=== PATIENT | male | born 1945 | race Caucasian/White ===

== ENCOUNTER 2020-04-15 07:27 | Outpatient (CLI) | payer MEDICARE, SELFPAY ==
--- NOTE | 2020-04-15 07:55 | ECHO_ITS ---
Patient Info Name: Anthony Mercado Age: 74 years : 1945 Gender: Male Ht: 71 in Wt: 160 lbs BSA: 1.91 m2 HR: 61 bpm BP: 127 / 73 mmHg Technical Quality: Good Exam Date: 04/15/2020 7:56 AM Exam Location: [facility] Patient Status: Outpatient Admit Date: 04/15/2020 Staff Ordering Physician: Matias Polk DO Headlight Adjuster: Patricia Zhang RDCS Attending Provider: Matias Polk DO Referring Physician: Jam VENEGAS; Exam Type: CA echo doppler color flow Study Info Indications I51.9 - Heart disease, unspecified Complete two-dimensional, color flow and Doppler transthoracic echocardiogram is performed. Summary 1. Complete two-dimensional, color flow and Doppler transthoracic echocardiogram is performed. 2. Left ventricular chamber dimension is severely enlarged. 3. [place] is akinetic. Mid-apical anteroseptum/septum/lateral hector are severely hypokinetic. 4. Left ventricular systolic function is severely reduced, estimated at 30-35%. 5. The left ventricular diastolic function is grade II diastolic dysfunction. 6. E/e' 18 is elevated. 7. Global longitudinal strain is abnormal at -5.8%. 8. Left atrial chamber dimension is mildly enlarged. 9. There is trace aortic valve regurgitation. 10. There is trace mitral valve regurgitation. 11. There is trace tricuspid valve regurgitation. 12. No pulmonary hypertension, estimated pulmonary arterial systolic pressure is 33 mmHg. 13. There is trace pulmonic regurgitation. 14. Normal inferior vena cava with <50% collapse upon inspiration consistent with elevated right atrial pressure, 10 mmHg. Left Ventricle E/e' 18 is elevated. [place] is akinetic. Mid-apical anteroseptum/septum/lateral hector are severely hypokinetic. Global longitudinal strain is abnormal at -5.8%. Left ventricular chamber dimension is severely enlarged. Left ventricular systolic function is severely reduced, estimated at 30-35%. The left ventricular diastolic function is grade II diastolic dysfunction. Right Ventricle Right ventricular chamber dimension is normal. Right ventricular systolic function is normal. Left Atria Left atrial chamber dimension is mildly enlarged. Right Atria Right atrial chamber dimension is normal. Aortic Valve The aortic valve is trileaflet. There is no aortic valve stenosis. There is trace aortic valve regurgitation. Pulmonic Valve There is trace pulmonic regurgitation. Mitral Valve There is no mitral valve stenosis. There is trace mitral valve regurgitation. Tricuspid Valve There is trace tricuspid valve regurgitation. No pulmonary hypertension, estimated pulmonary arterial systolic pressure is 33 mmHg. Pericardium/Pleural There is no pericardial effusion. Inferior Vena Cava Normal inferior vena cava with <50% collapse upon inspiration consistent with elevated right atrial pressure, 10 mmHg. Aorta The aortic root size at the sinus of Valsalva is normal. Left Ventricular Outflow Tract Name Value Normal LVOT 2D LVOT Diameter 2.0 cm LVOT Doppler LVOT Peak Gradient 4 mmHg LVOT Mean Gradient
== END 2020-04-15 07:28 | disposition home or self-care (01) ==
PROVIDERS: PCP Family Medicine; Visit Provider Internal Medicine Cardiovascular Disease
DX: I51.9 Heart disease, unspecified (principal)
CPT/HCPCS: 93306

== ENCOUNTER 2020-07-18 12:24 | Outpatient (CLI) | payer MEDICARE, SELFPAY ==
--- NOTE | 2020-07-18 12:50 | ECHO_ITS ---
Patient Info Name: Anthony Mercado Age: 75 years : 1945 Gender: Male Ht: 71 in Wt: 160 lbs BSA: 1.91 m2 BP: 108 / 59 mmHg Heart Rhythm: Sinus Rhythm Technical Quality: Good Exam Date: 07/18/2020 12:59 PM Exam Location: [facility] Patient Status: Outpatient Admit Date: 07/18/2020 Staff Ordering Physician: Matias Polk DO Residential Counselor: Cam Muniz RDCS Attending Provider: Matias Polk DO Referring Physician: Jam VENEGAS; Exam Type: CA echo doppler color flow Study Info Indications I51.9 - Heart disease, unspecified Complete two-dimensional, color flow and Doppler transthoracic echocardiogram is performed. Strain analysis performed. History/Risk Factors Congestive heart failure. Summary 1. Complete two-dimensional, color flow and Doppler transthoracic echocardiogram is performed. 2. Left ventricular chamber dimension is severely enlarged. 3. Mid to apical anteroseptum and septum are akinetic. Entire apex is akinetic. 4. Left ventricular systolic function is severely reduced, estimated at 20-25%. 5. The left ventricular diastolic function is abnormal. 6. E/e' 25 is significantly elevated. 7. Global longitudinal strain is abnormal at -8.0%. 8. Left atrial chamber dimension is mildly enlarged. 9. There is mild mitral valve regurgitation. 10. There is mild tricuspid valve regurgitation. 11. There is trace pulmonic regurgitation. Left Ventricle E/e' 25 is significantly elevated. Mid to apical anteroseptum and septum are akinetic. Entire apex is akinetic. Global longitudinal strain is abnormal at -8.0%. Left ventricular chamber dimension is severely enlarged. Left ventricular systolic function is severely reduced, estimated at 20-25%. The left ventricular diastolic function is abnormal. Right Ventricle Right ventricular chamber dimension is normal. Right ventricular systolic function is normal. Left Atria Left atrial chamber dimension is mildly enlarged. Right Atria Right atrial chamber dimension is normal. Aortic Valve The aortic valve is trileaflet. There is no aortic valve stenosis. There is no aortic valve regurgitation. Pulmonic Valve There is trace pulmonic regurgitation. Mitral Valve There is no mitral valve stenosis. There is mild mitral valve regurgitation. Tricuspid Valve There is mild tricuspid valve regurgitation. RVSP is not calculated due to an inadequate TR jet. Pericardium/Pleural There is no pericardial effusion. Inferior Vena Cava Normal inferior vena cava with >50% collapse upon inspiration consistent with normal right atrial pressure, 5 mmHg. Aorta The aortic root size at the sinus of Valsalva is normal. Left Ventricular Outflow Tract Name Value Normal LVOT 2D LVOT Diameter 2.0 cm LVOT Doppler LVOT Peak Gradient 3 mmHg LVOT Mean Gradient 2 mmHg LVOT VTI 19 cm LVOT VTI/AV VTI Ratio 0.8 LVOT Stroke Volume 58 ml LVOT CO 3.0 l/min
== END 2020-07-18 12:25 | disposition home or self-care (01) ==
PROVIDERS: PCP Family Medicine; Visit Provider Internal Medicine Cardiovascular Disease
DX: I51.9 Heart disease, unspecified (principal); I34.0 Nonrheumatic mitral (valve) insufficiency; I36.1 Nonrheumatic tricuspid (valve) insufficiency
CPT/HCPCS: 93306

== ENCOUNTER 2020-08-02 01:54 | Outpatient (CLI) | payer MEDICARE, SELFPAY ==
[2020-08-02 18:12] LABS: SARS-CoV-2 RNA PCR Negative
== END 2020-08-02 01:55 | disposition home or self-care (01) ==
LOC: ANHCOVIDDT 01:54
PROVIDERS: Family Provider Internal Medicine; PCP Family Medicine; Visit Provider Specialist
DX: Z01.812 Encounter for preprocedural laboratory examination (principal); Z20.822 Contact with and (suspected) exposure to COVID-19
CPT/HCPCS: C9803; U0003; U0005

== ENCOUNTER → 2020-08-13 00:46 | Outpatient (CLI) | payer MEDICARE, SELFPAY ==
[2020-08-13 20:38] LABS: SARS-CoV-2 RNA PCR Negative
== END ==
PROVIDERS: PCP Family Medicine; Visit Provider Specialist
DX: Z01.812 Encounter for preprocedural laboratory examination (principal); Z20.822 Contact with and (suspected) exposure to COVID-19
CPT/HCPCS: C9803; U0003; U0005

== ENCOUNTER 2020-08-17 01:18 | Day surgery (SDC) | payer MEDICARE, SELFPAY ==
[2020-08-16 13:30] VITALS: BMI 22.3
[2020-08-17] VITALS (14 sets, daily range): BP systolic 112–167; BP diastolic 60–106; PULSE 59–84; RESP 12–16; TEMP 36.5–36.8; O2SAT 98–100; BMI 21.7
[2020-08-17 07:33] LABS: Basophils Absolute Auto 0.1 K/mm3 (0.0-0.1); Basophils Percent Auto 1.1 % (0.2-1.2); Eosinophils Absolute Auto 0.2 K/mm3 (0-0.3); Eosinophils Percent Auto 2.6 % (0-4.4); Hematocrit 40.5 % (42.0-52.0); Hemoglobin 13.5 g/dL (14.0-18.0); Immature Granulocyte Absolute 0.02 K/mm3 (0.00-0.031); Immature Granulocyte Percent A 0.2 % (0-0.5); Lymphocytes Absolute Auto 2.25 K/mm3 (0.9-3.2); Lymphocytes Percent Auto 28.1 % (18.3-44.2); Mean Corpuscular HGB Conc 33.3 g/dl (32-36); Mean Corpuscular Hemoglobin 32.3 pg (26-34); Mean Corpuscular Volume 96.9 fl (80-100); Mean Platelet Volume 10.4 fl (7.4-10.4); Monocytes Absolute Auto 0.8 K/mm3 (0.1-0.6); Monocytes Percent Auto 10.5 % (2.6-8.5); Neutrophils Absolute Auto 4.6 K/mm3 (1.3-6.7); Neutrophils Percent Auto 57.5 % (45.5-73.1); Platelet Count Result 271 k/mm3 (150-375); Red Blood Count 4.18 M/mm3 (4.6-6.20); Red Cell Distribution Width 13.2 % (11.5-14.5)
[2020-08-17 07:45] LABS: Anion Gap 6 mmol/L (8-16); Blood Urea Nitrogen 14 mg/dL (9-20); Calcium 9.7 mg/dL (8.4-10.2); Carbon Dioxide 30 mmol/L (22-30); Chloride 103 mmol/L (98-107); Estimated CRCL calculation 89 ml/min; Estimated Glomerular Filt Rate > 60; Glucose 147 mg/dL (75-110); Prothrombin Time 13.4 Seconds (11.1-14.7); Sodium 139 mmol/L (137-145)
--- NOTE | 2020-08-17 09:50 | WPDMODSED ---
Moderate Sedation Note-Pt Data Patient Data Diagnosis: left ventricular systolic dysfunction with evidence of coronary disease on stress testing Present Complaint: no complaints Procedure to be performed/Plan: left heart catheterization Allergies Allergy/AdvReac Type Severity Reaction Status Date / Time No Known Allergies Allergy Unverified 07/22/20 13:48 Home Medications Medication Instructions Recorded Confirmed Type pravastatin 10 mg tablet 10 mg PO DAILY #30 tablet 01/29/20 08/17/20 Rx carvedilol 3.125 mg tablet 3.125 mg PO Q12H #60 tablet 04/15/20 08/17/20 Rx lisinopril 2.5 mg tablet 2.5 mg PO DAILY #30 tablet 04/15/20 08/17/20 Rx aspirin 81 mg tablet,delayed 81 mg PO DAILY 04/22/20 08/17/20 History release glyburide 2.5 mg tablet 2.5 mg PO BID #180 tablet 06/08/20 08/17/20 Rx canagliflozin-metformin [Invokamet 2 tablet PO BID 08/16/20 08/17/20 History XR] Current Medications: Active Medications Sodium Chloride (Normal Saline Iv) 500 mls @ 100 mls/hr IV CONT .Q5H KAYLA Sedation/Anesthesia: No previous sedation/anesthesia problems (including family history). [facility] Past Medical History Medical History (Updated 03/29/20 @ 14:15 by Matias Polk DO) Depression Diabetes Elevated lipids Family History Family History Father Family history of congestive heart failure, Onset Age: 76 Family history of rheumatic fever Other Depression Diabetes mellitus Family history of seizure disorder Family history of thyroid disease Hypertension Social History Social History Smoking status: Never smoker Second hand tobacco smoke exposure: No Alcohol intake: never Living arrangements: alone Gender identity (if verbalized by the patient): Male Spiritual care concerns: No Mod Sed Physical Exam Physical Exam Pre Procedural Exam: Normal: Appearance, Neck, Throat, Airway, Lungs, Heart Size, Heart Rate, Heart Rhythm, Neuro Exam and Extremities Hours since solid foods: 12 Hours since liquid intake: 12 Internal Medicine - PN: Obj Da Vital Signs Vital Signs: Vital Signs - 24 hr 08/17/20 07:30 Temperature 36.8 C Pulse Rate 63 Respiratory Rate 13 Blood Pressure 163/75 H Pulse Oximetry 99 Meds/Results Medications: Active Medications Generic Name Dose Route Start Last Admin Trade Name Thu PRN Reason Stop Dose Admin Sodium Chloride 500 mls @ 100 mls/hr 08/17/20 07:05 Normal Saline Iv IV CONT .Q5H KAYLA Labs CBC & Chem 7: 08/17/20 07:28 08/17/20 07:28 Labs: Laboratory Results - last 24 hr 08/17/20 08/17/20 08/17/20 07:28 07:28 07:28 WBC 8.0 RBC 4.18 L Hgb 13.5 L Hct 40.5 L MCV 96.9 MCH 32.3 MCHC 33.3 RDW 13.2 Plt Count 271 MPV 10.4 Immature Gran % (Auto) 0.2 Neut % (Auto) 57.5 Lymph % (Auto) 28.1 [place] % (Auto) 10.5 H Eos % (Auto) 2.6 Baso % (Auto) 1.1 Lymph # (Auto) 2.25 [place] # (Auto) 0.8 H Eos # (Auto) 0.2 Baso # (Auto) 0.1 Abs Immat Gran (auto) 0.02 Absolute Neuts (auto) 4.6 Absolute Nucleated RBC 0.0 Nucleated RBC % 0.0 PT 13.4 INR 1.0 Sodium 139 Potassium 5.0 Chloride 103 Carbon Dioxide 30 Anion Gap 6 L BUN 14 Creatinine 0.60 L Estim Creat Clear Calc 89 Estimated GFR > 60 Glucose 147 H Calcium 9.7 ASA Classification/Sedation ASA Classification/Sedation ASA Class: II Emergent: No Risks: Risks, benefits and alternatives explained and patient/family accepted plan for sedation. Patient re-evaluated immediately prior to sedation.
--- NOTE | 2020-08-17 10:23 | WPDCARDPROC ---
Cardiac Cath Procedure Note Date of procedure:: 08/17/20 Performing physician:: Jg Mendoza MD Indication:: cardiomyopathy abnormal stress test suggesting CAD Brief clinical history:: this is a 75-year-old man reporting chronic symptoms of some exertional dyspnea. He is having no chest pain. Evaluation demonstrated significant LV systolic dysfunction and a fixed anterior defect compatible with a previous infarction. In this setting an angiogram has been recommended Procedure Procedure performed:: left ventriculography coronary angiography Sedation/Medication given:: fentanyl 50 mg Versed 2 mg case start time 10:02 a.m. case end time 10:13 a.m. sedation provided by Milana Montanez RN, trained observer. Access site:: Right femoral artery Estimated blood loss:: 10-15 cc Procedure note:: patient was brought to the cardiac catheterization lab in the postabsorptive state the right femoral triangle was prepared normal fashion. Anesthesia was provided with 1% lidocaine infiltrated locally. Using modified Seldinger technique a 5 [place] vascular sheath was placed into the femoral artery after this left heart catheterization was carried out. I utilized a 5 [place] angled pigtail catheter to assess left-sided hemodynamics and to injected LV g in the our AO projection. After this the pigtail catheter was removed and a standard 5 [place] FL4 catheter was used to engage inject the left coronary artery. A 5 [place] JR4 catheter was used to engage inject the right coronary artery. The cine angiograms were then reviewed and the case was terminated. The patient was taken to the holding area for manual sheath removal. 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 There were no apparent procedural complications. Findings:: Hemodynamics: Central aortic pressure is 168/72 left ventricle 168/3 end-diastolic pressure 16 there is no systolic gradient on pullback across the aortic valve. Left ventricle: The LV is moderately dilated there is severe global hypocontractility in all segments the estimated global ejection fraction is 20%. The left main coronary artery is large in caliber and has modest stenosis in the 1st portion representing about 30-40% stenosis. The left anterior descending is a medium caliber artery extending down to the apex. The LAD is diffusely attenuated in most of its length. There is a subtotal lesion the midportion of the LAD which actually in some views appears to be a chronic total occlusion with antegrade bridging collaterals. In any event there is more than 90% stenosis in the segment. The remainder of the LAD is mildly diffusely diseased but without high-grade focal lesions. The circumflex is a tyhybikr-jk-qeosh caliber artery giving rise to the marginal branches and a posterior branch. The trunk of the circumflex is free of significant stenosis. The 1st 2 marginal branches are small and free of significant disease. The 3rd marginal branch is a long vessel that has been occluded and appears to have antegrade collateral filling. It appears to be relatively small. A posterior branch distal to this is relatively patent. The right coronary artery is medium in caliber and dominant to the posterior circulation there is a 90-95% stenosis in the 2nd portion of the RCA, there is a 70-80% stenosis in the 3rd portion and I 95-99% stenosis in the 1st 3rd of the posterior descending artery. The posterolateral vessels are relatively small. Conclusion:: 1. Multivessel coronary artery disease with high-grade mid LAD stenosis of a small diffusely diseased artery in some views this appears to be a occluded vessel with antegrade bridging collaterals. There is total occlusion of the 3rd OM branch of the circumflex as well as high-grade stenosis in the 2nd portion of the RCA as well as high-grade stenosis in the 1st portion of the RPDA. 2. Severe left ventricular systolic dysfunction with global hypokinesi
== END 2020-08-17 16:30 | disposition home or self-care (01) ==
PROVIDERS: PCP Family Medicine; Visit Provider Specialist
PROC: 4A023N7 Measurement of Cardiac Sampling and Pressure, Left Heart, Percutaneous Approach (ICD-10-PCS; CPT 93452; principal; 2020-08-17 08:30)
DX: I25.10 Atherosclerotic heart disease of native coronary artery without angina pectoris (principal); R94.39 Abnormal result of other cardiovascular function study; I42.9 Cardiomyopathy, unspecified; R06.09 Other forms of dyspnea; I10 Essential (primary) hypertension; E78.5 Hyperlipidemia, unspecified; E11.9 Type 2 diabetes mellitus without complications; F32.9 Major depressive disorder, single episode, unspecified; Z79.84 Long term (current) use of oral hypoglycemic drugs
CPT/HCPCS: 36415; 80048; 85025; 85610; 93458; C1887; C1894; J0360; J1644; J2250; J3010; J7040

== ENCOUNTER 2020-10-06 10:41 | Outpatient (CLI) | payer MEDICARE, SELFPAY ==
--- NOTE | 2020-10-06 11:09 | ECHO_ITS ---
Patient Info Name: Anthony Mercado Age: 75 years : 1945 Gender: Male Ht: 71 in Wt: 155 lbs BSA: 1.87 m2 HR: 55 bpm BP: 86 / 58 mmHg Heart Rhythm: Sinus Rhythm Exam Date: 10/06/2020 11:49 AM Exam Location: [facility] Patient Status: Outpatient Admit Date: 10/06/2020 Staff Ordering Physician: Matias Polk DO Proof Load Mechanic: Beth Gee RDCS Attending Provider: Matias Polk DO Exam Type: CA echo doppler color flow Study Info Indications I51.9 - Heart disease, unspecified - CHRONIC SYSTOLIC DYSFUNCYION Complete two-dimensional, color flow and Doppler transthoracic echocardiogram is performed. Summary 1. Complete two-dimensional, color flow and Doppler transthoracic echocardiogram is performed. 2. Left ventricular chamber dimension is severely enlarged. 3. Mid-apical anteroseptum/septum are akinetic. [place] is akinetic. Inferior/posterior hector are severely hypokinetic. 4. Left ventricular systolic function is severely reduced, estimated at 20-25%. 5. The left ventricular diastolic function is grade I diastolic dysfunction. 6. E/e' 18 is elevated. 7. There is trace mitral valve regurgitation. 8. There is trace tricuspid valve regurgitation. 9. No pulmonary hypertension, estimated pulmonary arterial systolic pressure is 19 mmHg. Left Ventricle E/e' 18 is elevated. Mid-apical anteroseptum/septum are akinetic. [place] is akinetic. Inferior/posterior hector are severely hypokinetic. Left ventricular chamber dimension is severely enlarged. Left ventricular systolic function is severely reduced, estimated at 20-25%. The left ventricular diastolic function is grade I diastolic dysfunction. Right Ventricle Right ventricular chamber dimension is normal. Right ventricular systolic function is normal. Left Atria Left atrial chamber dimension is normal. Right Atria Right atrial chamber dimension is normal. Aortic Valve The aortic valve is trileaflet. There is no aortic valve stenosis. There is no aortic valve regurgitation. Pulmonic Valve There is no pulmonic regurgitation. Mitral Valve There is no mitral valve stenosis. There is trace mitral valve regurgitation. Tricuspid Valve There is trace tricuspid valve regurgitation. No pulmonary hypertension, estimated pulmonary arterial systolic pressure is 19 mmHg. Pericardium/Pleural There is no pericardial effusion. Inferior Vena Cava Normal inferior vena cava with >50% collapse upon inspiration consistent with normal right atrial pressure, 5 mmHg. Aorta The aortic root size at the sinus of Valsalva is normal. Left Ventricular Outflow Tract Name Value Normal LVOT 2D LVOT Diameter 2.1 cm LVOT Doppler LVOT Peak Gradient 3 mmHg LVOT Mean Gradient 1 mmHg LVOT VTI 18 cm LVOT VTI/AV VTI Ratio 0.6 LVOT Stroke Volume 65 ml Pulmonic Valve Name Value Normal
== END 2020-10-06 10:42 | disposition home or self-care (01) ==
PROVIDERS: PCP Family Medicine; Visit Provider Internal Medicine Cardiovascular Disease
DX: I51.9 Heart disease, unspecified (principal); I51.7 Cardiomegaly
CPT/HCPCS: 93306

== ENCOUNTER 2021-06-30 04:03 | Emergency (ER) | payer MEDICARE, SELFPAY ==
[2021-06-30] VITALS (7 sets, daily range): BP systolic 103–163; BP diastolic 61–90; PULSE 57–62; RESP 12–16; TEMP 36.4; O2SAT 97–100
--- NOTE | ~2021-06-30 | XR_ITS ---
XR chest 1V portable DATE: 06/30/2021 04:24 INDICATION: Chest pain. Triple bypass on 06/06/2021. Hypertension. TECHNIQUE: Portable upright AP chest on 06/26/2021 at 0418 hours COMPARISON: 06/28/2018 CT chest FINDINGS: Status post sternotomy and coronary bypass graft surgery. Heart size appears within normal range. No pulmonary infiltrate or consolidation, pleural effusion or pulmonary vascular congestion or pneumothorax is detected. IMPRESSION: Status post sternotomy/CABG No active cardiopulmonary disease Reviewed, dictated and finalized at location A. F ENGINEER'S HELPER
--- NOTE | 2021-06-30 04:36 | ED.GENADULT ---
HPI - General Adult General Chief complaint: Unspecified Stated complaint: anxiety, high blood pressure Time Seen by Provider: 06/30/21 04:13 Source: patient Mode of arrival: ambulatory Limitations: no limitations History of Present Illness HPI narrative: Patient is a 76-year-old male complaining of I think I am having a panic attack , described as unable to sleep, elevated blood pressure, cold sweats, I feel anxious started today. 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 Patient also states that he recently had a CABG done at [facility] approximately 3 weeks ago. Patient denies any chest pain, shortness of breath, abdominal pain, nausea, vomiting, fever or chills. Related Data Home Medications Medication Instructions Recorded Confirmed aspirin 81 mg tablet,delayed 81 mg PO DAILY 04/22/20 06/21/21 release sacubitril 24 mg-valsartan 26 mg 1 tablet PO BID 03/31/21 06/21/21 tablet Allergies Allergy/AdvReac Type Severity Reaction Status Date / Time No Known Allergies Allergy Verified 03/31/21 08:59 Review of Systems Review of Systems: All systems reviewed & are unremarkable except as noted in HPI and below Constitutional: Constitutional: Denies body ache(s), Denies chills, Denies excessive sweating, Denies fatigue, Denies fever(s), Denies headache(s), Denies lethargy, Denies malaise, Denies weakness and Denies weight loss Eyes: Eyes: Denies blurry vision, Denies change in vision and Denies loss of vision ENT: Denies dizziness, Denies ear discharge, Denies headache(s), Denies lip swelling, Denies epistaxis, Denies nasal congestion, Denies neck pain, Denies throat swelling and Denies tongue swelling Cardiovascular: Cardiovascular: Denies chest pain, Denies chest pain at rest, Denies chest pain with activity, Denies diaphoresis, Denies rapid heart rate, Denies edema, Denies irregular heart rhythm, Denies lightheadedness, Denies palpitations, Denies dyspnea and Denies dyspnea on exertion Respiratory: Respiratory: Denies chest congestion, Denies cough, Denies hemoptysis, Denies dyspnea and Denies dyspnea on exertion Gastrointestinal: Gastrointestinal: Denies abdominal pain, Denies melena, Denies hematochezia, Denies diarrhea, Denies nausea, Denies vomiting and Denies hematemesis Musculoskeletal: Musculoskeletal: Denies abnormal gait, Denies deformity, Denies joint swelling, Denies limited range of motion, Denies neck pain and Denies numbness Neurologic: Denies Abnormal speech present, Denies abnormal gait, Denies confusion, Denies dizziness, Denies headache(s), Denies focal weakness, Denies loss of vision, Denies numbness, Denies Other visual disturbances, Denies Sensory deficit (Neuro) and Denies weakness Psychiatric: Psychiatric: Denies confusion, Denies depression, Denies auditory hallucinations, Denies homicidal ideation and Denies suicidal ideation Endocrine: Endocrine: Denies cold intolerance, Denies excessive sweating, Denies fatigue, Denies heat intolerance and Denies palpitations Hematologic/Lymphatic: Hematologic/Lymphatic: Denies easy bleeding and Denies easy bruising Allergic/Immunologic: Allergic/Immunologic: Denies lip swelling, Denies throat swelling and Denies tongue swelling PMFSH Past Medical History Medical History Depression Diabetes Elevated lipids Surgical History Surgical History History of bilateral cataract extraction Family History Family History Father Family history of congestive heart failure, Onset Age: 76 Family history of rheumatic fever Other Depression Diabetes mellitus Family history of seizure disorder Family history of thyroid disease Hypertension Social History Social History Smoking status:
[2021-06-30] MEDS: LORazepam (*CRX) 1 MG TABLET PO (04:43)
[2021-06-30 04:46] LABS: Basophils Absolute Auto 0.1 K/mm3 (0.0-0.1); Basophils Percent Auto 0.6 % (0.2-1.2); Eosinophils Absolute Auto 0.3 K/mm3 (0-0.3); Eosinophils Percent Auto 2.4 % (0-4.4); Hematocrit 32.4 % (42.0-52.0); Hemoglobin 10.5 g/dL (14.0-18.0); Immature Granulocyte Absolute 0.06 K/mm3 (0.00-0.031); Immature Granulocyte Percent A 0.5 % (0-0.5); Lymphocytes Absolute Auto 1.58 K/mm3 (0.9-3.2); Lymphocytes Percent Auto 14.2 % (18.3-44.2); Mean Corpuscular HGB Conc 32.4 g/dl (32-36); Mean Corpuscular Hemoglobin 32.3 pg (26-34); Mean Corpuscular Volume 99.7 fl (80-100); Mean Platelet Volume 9.8 fl (7.4-10.4); Monocytes Absolute Auto 0.8 K/mm3 (0.1-0.6); Monocytes Percent Auto 7.5 % (2.6-8.5); Neutrophils Absolute Auto 8.3 K/mm3 (1.3-6.7); Neutrophils Percent Auto 74.8 % (45.5-73.1); Platelet Count Result 315 k/mm3 (150-375); Red Blood Count 3.25 M/mm3 (4.6-6.20); Red Cell Distribution Width 13.7 % (11.5-14.5); White Blood Count 11.2 K/mm3 (4.5-10.0)
[2021-06-30 04:57] LABS: INR 2.4; Prothrombin Time 25.9 Seconds (11.1-14.7)
[2021-06-30 04:58] LABS: Anion Gap 12 mmol/L (8-16); Blood Urea Nitrogen 19 mg/dL (9-20); Calcium 9.2 mg/dL (8.4-10.2); Carbon Dioxide 23 mmol/L (22-30); Chloride 95 mmol/L (98-107); Estimated CRCL calculation 58 ml/min; Estimated Glomerular Filt Rate > 60; Glucose 64 mg/dL (65-110); Partial Thromboplastin Time 45.3 SECONDS (22.3-36.8); Potassium 4.5 mmol/L (3.4-5.0); Sodium 130 mmol/L (137-145)
[2021-06-30 05:10] LABS: Troponin I 0.027 ng/mL (0.000-0.034)
--- NOTE | 2021-06-30 05:32 | PC.NURSE ---
Pt states he feels better after medication administration
--- NOTE | 2021-06-30 07:56 | ECG_ITS ---
Measurements Intervals [place] Rate: 68 P: 87 [place]: 291 QRS: 36 QRSD: 108 T: 162 QT: 423 QTc: 451 Interpretive Statements SINUS RHYTHM WITH FIRST DEGREE AV BLOCK MINIMAL Q WAVES- INFERIOR LEADS CONSIDER ANTEROLATERAL INFARCT, AGE INDETERMINATE ST-T WAVE ABNORMALITY IN HIGH LATERAL LEADS- CONSIDER ISCHEMIA BASELINE ARTIFACT- II, III, AVR, AVL, AVF, V2-V6 ABNORMAL ECG Electronically Signed On 06-30-2021 8:33:11 [employer] MACHINE by Matias Polk D.O.
[2021-06-30 08:03] LABS: Troponin I 0.025 ng/mL (0.000-0.034)
== END 2021-06-30 09:08 | disposition home or self-care (01) ==
PROVIDERS: Emergency Provider Emergency Medicine; PCP Family Medicine
DX: F41.9 Anxiety disorder, unspecified (principal); I11.0 Hypertensive heart disease with heart failure; I25.10 Atherosclerotic heart disease of native coronary artery without angina pectoris; E11.9 Type 2 diabetes mellitus without complications; E78.5 Hyperlipidemia, unspecified; Z79.82 Long term (current) use of aspirin; Z95.1 Presence of aortocoronary bypass graft
CPT/HCPCS: 36415; 71045; 80048; 84484; 85025; 85610; 85730; 93005; 99284; A9270

== ENCOUNTER 2021-08-17 07:15 | Outpatient (RCR) | payer MEDICARE, SELFPAY ==
[2021-07-28 09:51] VITALS: PULSE 67
== END 2021-08-28 08:04 | disposition home or self-care (01) ==
LOC: ANHCPREHAB 07:15
PROVIDERS: PCP Family Medicine; Visit Provider Internal Medicine Cardiovascular Disease
DX: Z95.1 Presence of aortocoronary bypass graft (principal)
CPT/HCPCS: 93798

== ENCOUNTER 2021-09-06 12:34 | Outpatient (CLI) | payer MEDICARE, SELFPAY ==
--- NOTE | 2021-09-06 12:52 | ECHO_ITS ---
Patient Info Name: Anthony Mercado Age: 76 years : 1945 Gender: Male Ht: 71 in Wt: 130 lbs BSA: 1.70 m2 HR: 60 bpm BP: 112 / 63 mmHg Technical Quality: Good Exam Date: 09/06/2021 1:10 PM Exam Location: [facility] Patient Status: Outpatient Admit Date: 09/06/2021 Staff Ordering Physician: Matias Polk DO Mail Rider: Skyler Adame RDCS, RT Attending Provider: Matias Polk DO Referring Physician: Jam VENEGAS; Exam Type: CA echo dop color flow w con Study Info Indications I50.9 - Heart failure, unspecified Strain analysis performed. Complete two-dimensional, color flow and Doppler transthoracic echocardiogram is performed with contrast to opacify the left ventricle and to improve the deliniation of the left ventricle endocardial borders. Summary 1. Left ventricular chamber dimension is severely enlarged. 2. Definity contrast administered improved wall motion interpretation. 3. Mid to apical anterior wall and apical septum, and apex are akinetic. 4. Left ventricular systolic function is severely reduced, estimated at 30-35%. 5. The left ventricular diastolic function is grade III diastolic dysfunction. 6. E/e' 13 is mildly elevated. 7. Global longitudinal strain is abnormal at -8.5%. 8. Left atrial chamber dimension is mildly enlarged. 9. There is mild mitral valve regurgitation. 10. There is trace tricuspid valve regurgitation. 11. The proximal ascending aorta size is borderline dilated at 4.1 cm. Left Ventricle E/e' 13 is mildly elevated. Definity contrast administered improved wall motion interpretation. Global longitudinal strain is abnormal at -8.5%. Mid to apical anterior wall and apical septum, and apex are akinetic. Left ventricular chamber dimension is severely enlarged. Left ventricular systolic function is severely reduced, estimated at 30-35%. The left ventricular diastolic function is grade III diastolic dysfunction. Right Ventricle Right ventricular chamber dimension is normal. Right ventricular systolic function is normal. Left Atria Left atrial chamber dimension is mildly enlarged. Right Atria Right atrial chamber dimension is normal. Aortic Valve The aortic valve is trileaflet. There is no aortic valve stenosis. There is no aortic valve regurgitation. Pulmonic Valve There is no pulmonic regurgitation. Mitral Valve There is no mitral valve stenosis. There is mild mitral valve regurgitation. Tricuspid Valve There is trace tricuspid valve regurgitation. RVSP is not calculated due to an inadequate TR jet. Pericardium/Pleural There is no pericardial effusion. Inferior Vena Cava Normal inferior vena cava with >50% collapse upon inspiration consistent with normal right atrial pressure, 5 mmHg. Aorta The proximal ascending aorta size is borderline dilated at 4.1 cm. Left Ventricular Outflow Tract Name Value Normal LVOT 2D LVOT Diameter 2.02 cm LVOT Doppler LVOT Peak Gradient 2 mmHg LVOT Mean Gradient 1 mmHg LVOT VTI 16.33 cm LVOT VTI/AV VTI Ratio
[2021-09-06] MEDS: PERFLUTREN LIPID MICROSPHERES 1.5 ML VIAL DILUTED TO 10 ML TOTAL VOLUME IV PUSH (13:10)
== END 2021-09-06 12:35 | disposition home or self-care (01) ==
LOC: ANHCARD 12:35
PROVIDERS: PCP Family Medicine; Visit Provider Internal Medicine Cardiovascular Disease
DX: I51.9 Heart disease, unspecified (principal); R93.1 Abnormal findings on diagnostic imaging of heart and coronary circulation
CPT/HCPCS: C8929; Q9957

== ENCOUNTER 2022-02-15 11:25 | Outpatient (CLI) | payer MEDICARE, SELFPAY ==
[2022-02-15 18:59] LABS: Alanine Aminotransferase 11 U/L (6-50); Alkaline Phosphatase 67 U/L (38-126); Anion Gap 13 mmol/L (8-16); Aspartate Amino Transferase 21 U/L (17-59); Bilirubin,Total 0.6 mg/dL (0.2-1.3); Blood Urea Nitrogen 36 mg/dL (9-20); Calcium 9.8 mg/dL (8.4-10.2); Carbon Dioxide 25 mmol/L (22-30); Chloride 97 mmol/L (98-107); Cholesterol 151 mg/dL (0-200); Estimated Glomerular Filt Rate 59; Glucose 117 mg/dL (65-110); HDL Direct 49 mg/dL; Sodium 135 mmol/L (137-145); Triglycerides 68 mg/dL (<150)
[2022-02-15 19:10] LABS: LDL Cholesterol Direct 74 mg/dL
[2022-02-15 19:42] LABS: Creatinine Urine 68.8 mg/dL
[2022-02-15 19:46] LABS: Hemoglobin A1C 6.2 % (<5.7)
[2022-02-15 19:47] LABS: MALB Creatinine Ratio 65.7 mg/g (0-30); Microalbumin Urine Random 45.2 mg/L (0-16.7)
[2022-02-15 20:28] LABS: Hematocrit 41.3 % (42.0-52.0); Mean Corpuscular HGB Conc 31.5 g/dl (32-36); Mean Corpuscular Hemoglobin 30.9 pg (26-34); Mean Corpuscular Volume 98.1 fl (80-100); Mean Platelet Volume 10.7 fl (7.4-10.4); Platelet Count Result 299 k/mm3 (150-375); Red Blood Count 4.21 M/mm3 (4.6-6.20); Red Cell Distribution Width 13.5 % (11.5-14.5); White Blood Count 6.4 K/mm3 (4.5-10.0)
== END 2022-02-15 11:26 | disposition home or self-care (01) ==
PROVIDERS: PCP Family Medicine; Visit Provider Family Medicine
DX: E11.9 Type 2 diabetes mellitus without complications (principal)
CPT/HCPCS: 36415; 80053; 80061; 82043; 83036; 85027

== ENCOUNTER 2022-08-21 07:41 | Outpatient (CLI) | payer MEDICARE, SELFPAY ==
[2022-08-21 20:01] LABS: Basophils Absolute Auto 0.1 K/mm3 (0.0-0.1); Basophils Percent Auto 1.3 % (0.2-1.2); Eosinophils Absolute Auto 0.1 K/mm3 (0-0.3); Eosinophils Percent Auto 1.5 % (0-4.4); Hematocrit 43.8 % (42.0-52.0); Hemoglobin 13.9 g/dL (14.0-18.0); Immature Granulocyte Absolute 0.04 K/mm3 (0.00-0.031); Immature Granulocyte Percent A 0.5 % (0-0.5); Lymphocytes Absolute Auto 2.64 K/mm3 (0.9-3.2); Lymphocytes Percent Auto 30.2 % (18.3-44.2); Mean Corpuscular HGB Conc 31.7 g/dl (32-36); Mean Corpuscular Hemoglobin 31.7 pg (26-34); Mean Platelet Volume 10.9 fl (7.4-10.4); Monocytes Absolute Auto 0.9 K/mm3 (0.1-0.6); Monocytes Percent Auto 10.8 % (2.6-8.5); Neutrophils Absolute Auto 4.9 K/mm3 (1.3-6.7); Neutrophils Percent Auto 55.7 % (45.5-73.1); Platelet Count Result 331 k/mm3 (150-375); Red Blood Count 4.38 M/mm3 (4.6-6.20); Red Cell Distribution Width 13.3 % (11.5-14.5); White Blood Count 8.7 K/mm3 (4.5-10.0)
[2022-08-21 20:34] LABS: Alanine Aminotransferase 16 U/L (6-50); Albumin Level 5.1 g/dL (3.5-5.1); Alkaline Phosphatase 75 U/L (38-126); Anion Gap 13 mmol/L (8-16); Aspartate Amino Transferase 34 U/L (17-59); Bilirubin,Total 0.7 mg/dL (0.2-1.3); Blood Urea Nitrogen 27 mg/dL (9-20); Calcium 9.8 mg/dL (8.4-10.2); Carbon Dioxide 25 mmol/L (22-30); Chloride 103 mmol/L (98-107); Cholesterol 160 mg/dL (0-200); Estimated Glomerular Filt Rate 59; Glucose 170 mg/dL (65-110); HDL Direct 45 mg/dL; Potassium 6.4 mmol/L (3.4-5.0); Sodium 141 mmol/L (137-145); Triglycerides 93 mg/dL (<150)
[2022-08-21 20:38] LABS: Hemoglobin A1C 5.9 % (<5.7); LDL Cholesterol Direct 82 mg/dL
[2022-08-21 22:20] LABS: Creatinine Urine 53.2 mg/dL
[2022-08-21 22:27] LABS: MALB Creatinine Ratio 110.7 mg/g (0-30); Microalbumin Urine Random 58.9 mg/L (0-16.7)
== END 2022-08-21 07:42 | disposition home or self-care (01) ==
PROVIDERS: PCP Family Medicine; Visit Provider Family Medicine
DX: E11.9 Type 2 diabetes mellitus without complications (principal)
CPT/HCPCS: 36415; 80053; 80061; 82043; 83036; 85025

== ENCOUNTER 2022-09-13 11:35 | Outpatient (CLI) | payer MEDICARE, SELFPAY ==
--- NOTE | 2022-09-13 12:26 | ECHO_ITS ---
Patient Info Name: Anthony Mercado Age: 77 years : 1945 Gender: Male Ht: 71 in Wt: 160 lbs BSA: 1.91 m2 HR: 58 bpm BP: 126 / 71 mmHg Technical Quality: Good Exam Date: 09/13/2022 12:54 PM Exam Location: [facility] Patient Status: Outpatient Admit Date: 09/13/2022 Staff Ordering Physician: Mtaias Polk DO [employer]: Patricia Zhang RDCS Attending Provider: Matias Polk DO Referring Physician: Jam VENEGAS; Exam Type: CA echo doppler color flow Study Info Indications I51.9 - HEART DISEASE, UNSPECIFIED Complete two-dimensional, color flow and Doppler transthoracic echocardiogram is performed. Summary 1. Complete two-dimensional, color flow and Doppler transthoracic echocardiogram is performed. 2. Left ventricular systolic function is severely globally reduced, estimated at 30-35%. 3. Left ventricular chamber dimension is moderately enlarged. 4. [place], apical septum are akinetic. 5. The left ventricular diastolic function is grade III diastolic dysfunction. 6. E/e' 15 is elevated. 7. Global longitudinal strain is abnormal at -7.9%. 8. Left atrial chamber dimension is moderately enlarged. 9. Right atrial chamber dimension is moderately enlarged. 10. There is mild aortic valve sclerosis. 11. There is mild mitral valve regurgitation. 12. No pulmonary hypertension, estimated pulmonary arterial systolic pressure is 23 mmHg. 13. The aortic root size at the sinus of Valsalva is borderline dilated at 4.1 cm. Left Ventricle E/e' 15 is elevated. Global longitudinal strain is abnormal at -7.9%. Left ventricular systolic function is severely globally reduced, estimated at 30-35%. [place], apical septum are akinetic. Left ventricular chamber dimension is moderately enlarged. The left ventricular diastolic function is grade III diastolic dysfunction. Right Ventricle Right ventricular chamber dimension is normal. Right ventricular systolic function is normal. Left Atria Left atrial chamber dimension is moderately enlarged. Right Atria Right atrial chamber dimension is moderately enlarged. Aortic Valve The aortic valve is trileaflet. There is mild aortic valve sclerosis. There is no aortic valve stenosis. There is no aortic valve regurgitation. Pulmonic Valve There is no pulmonic regurgitation. Mitral Valve There is no mitral valve stenosis. There is mild mitral valve regurgitation. Tricuspid Valve There is no tricuspid valve regurgitation. No pulmonary hypertension, estimated pulmonary arterial systolic pressure is 23 mmHg. Pericardium/Pleural There is no pericardial effusion. Inferior Vena Cava Normal inferior vena cava with >50% collapse upon inspiration consistent with normal right atrial pressure, 5 mmHg. Aorta The aortic root size at the sinus of Valsalva is borderline dilated at 4.1 cm. Left Ventricular Outflow Tract Name Value Normal LVOT 2D LVOT Diameter 2.0 cm LVOT Doppler LVOT Peak Gradient 3 mmHg LVOT Mean Gradient 2 mmHg LVOT VTI 20 cm LVOT VTI
== END 2022-09-13 11:36 | disposition home or self-care (01) ==
LOC: ANHCARD 11:37
PROVIDERS: PCP Family Medicine; Visit Provider Internal Medicine Cardiovascular Disease
DX: I08.0 Rheumatic disorders of both mitral and aortic valves (principal); R93.1 Abnormal findings on diagnostic imaging of heart and coronary circulation
CPT/HCPCS: 93306

== ENCOUNTER 2022-10-09 15:37 | Emergency (ER) | payer MEDICARE, SELFPAY ==
[2022-10-09 15:42] VITALS: BP 92/51; PULSE 61; RESP 20; TEMP 36.9; O2SAT 100
--- NOTE | 2022-10-09 16:30 | ED.URI ---
HPI - URI/Sore Throat General Chief Complaint: Upper Respiratory Infection Stated Complaint: soare throat and feels bad Time Seen by Provider: 10/09/22 16:30 Source: patient, RN notes reviewed and old records reviewed Mode of arrival: ambulatory Limitations: no limitations History of Present Illness HPI Narrative: 77 year old male accompanied by daughter with complaints of body aches, fatigue, sore throat, mild nasal drainage, denies any acute cough for the past 2 days. Patient reports he has been fatigued and weak for the past 1-2 years had open heart surgery in 2020 but has been worse this past week. Patient reports going on vacation with his son to [facility] and traveled by car hour drive each way and thinks he is just worn out from trip. patient reports that he had diarrhea X1 denies any nausea or vomiting.Patient reports that he has been COVID vaccinated denies any known ill contacts. MD elicited complaint: sore throat, rhinorrhea and nasal congestion Onset (ago): day(s) (2) Pain scale (0-10): 5 Description of mucous: clear Treatments prior to arrival: none Related Data Home Medications Medication Instructions Recorded Confirmed aspirin 81 mg tablet,delayed 81 mg PO DAILY 04/22/20 10/09/22 release atorvastatin 40 mg tablet 40 mg PO HS 07/13/21 10/09/22 sacubitril 24 mg-valsartan 26 mg 1 tablet PO BID 10/06/21 10/09/22 tablet (Entresto) Allergies Allergy/AdvReac Type Severity Reaction Status Date / Time No Known Allergies Allergy Verified 10/09/22 16:06 Review of Systems Review of Systems: CONSTITUTIONAL: Denies malaise, chills, sweats, or fever.reports fatigue EYES: Denies visual changes, redness, or discharge. ENT: Reports rhinorrhea, congestion, sinus pain,no otalgia positive for sore throat. CARDIOVASCULAR: Denies chest pain, palpitations, or edema. RESPIRATORY: Reports occasional cough.? Denies dyspnea. GASTROINTESTINAL: Denies abdominal pain, nausea, vomiting, reports diarrhea stool X1 normal BM today SKIN: Denies rash or itching. MUSCULOSKELETAL: Reports myalgia. NEUROLOGIC: Denies headache. All systems reviewed & are unremarkable except as noted in HPI and below PMFSH Past Medical History Medical History (Updated 10/11/22 @ 08:50 by Zenia Thomas NP) Anemia CAD (coronary artery disease) Depression Diabetes Elevated lipids Type 2 diabetes mellitus Surgical History Surgical History (Updated 10/11/22 @ 08:46 by Zenia Thomas NP) History of bilateral cataract extraction History of open heart surgery 2020 Family History Family History Father Depression HLD (hyperlipidemia) Family history of rheumatic fever Family history of congestive heart failure, Onset Age: 76 Sibling Family history of seizure disorder Family history of thyroid disease Mother Diabetes mellitus HLD (hyperlipidemia) Hypertension Social History Social History Smoking status: Never smoker Second hand tobacco smoke exposure: No Alcohol intake: never Substance use: never Substance use type: does not use Lack of Transportation: No Lack of Food: Never True Current Housing: I Have Housing Concerned About Future Housing: No Difficulty Paying Gas/Electric Bills: No Difficulty Paying for Meds: No Currently Unemployed: No Education: High School Diploma/GED Difficulty w/ Childcare or Family Care: No Living arrangements: alone Gender identity (if verbalized by the patient): Male Spiritual care concerns: No Comments At time of signature, agree with nursing past medical, surgical, social and family history. There is no relevant family history pertinent to the presenting complaint Exam Narrative: GENERAL: Chronic ill-appearing, fair-nourished, and in no acute distress. HEAD: Normocephalic EYES: PERRLA, conjunctivae clear ENT: Nare
== END 2022-10-09 16:45 | disposition home or self-care (01) ==
PROVIDERS: Emergency Provider Registered Nurse; PCP Family Medicine
DX: J06.9 Acute upper respiratory infection, unspecified (principal); I25.10 Atherosclerotic heart disease of native coronary artery without angina pectoris; E11.9 Type 2 diabetes mellitus without complications; Z98.42 Cataract extraction status, left eye; Z98.41 Cataract extraction status, right eye
CPT/HCPCS: 87081; 87880; 99213; G0463

== ENCOUNTER 2022-10-11 04:36 | Emergency (ER) | payer MEDICARE, SELFPAY ==
[2022-10-11 04:40] VITALS: BP 133/70; PULSE 92; RESP 24; TEMP 36.2; O2SAT 99
[2022-10-11 06:42] VITALS: BP 129/62; PULSE 70; RESP 19; O2SAT 96
[2022-10-11 06:53] VITALS: BP 113/63; PULSE 68; RESP 18; O2SAT 95
--- NOTE | 2022-10-11 08:08 | ED.GENADULT ---
HPI - General Adult General Chief complaint: Unspecified Stated complaint: n/v Time Seen by Provider: 10/11/22 06:55 History of Present Illness HPI narrative: 77-year-old male presenting to the ED for evaluation of nausea vomiting and sore throat. Patient states has been ongoing for the last few days. Patient did have follow-up with urgent care yesterday and was told to take [id number] medications. Patient had worsening symptoms overnight and presented to the ED for evaluation. Patient also does report increased generalized weakness. Related Data Home Medications Medication Instructions Recorded Confirmed aspirin 81 mg tablet,delayed 81 mg PO DAILY 04/22/20 10/09/22 release atorvastatin 40 mg tablet 40 mg PO HS 07/13/21 10/09/22 sacubitril 24 mg-valsartan 26 mg 1 tablet PO BID 10/06/21 10/09/22 tablet (Entresto) Allergies Allergy/AdvReac Type Severity Reaction Status Date / Time No Known Allergies Allergy Verified 10/09/22 16:06 Review of Systems Review of Systems: All systems reviewed & are unremarkable except as noted in HPI and below PMFSH Past Medical History Medical History (Updated 10/11/22 @ 11:05 by Daniel Florence MD) Anemia CAD (coronary artery disease) Depression Diabetes Elevated lipids Type 2 diabetes mellitus Surgical History Surgical History (Updated 10/11/22 @ 08:46 by Zenia Thomas NP) History of bilateral cataract extraction History of open heart surgery 2020 Family History Family History Father Depression HLD (hyperlipidemia) Family history of rheumatic fever Family history of congestive heart failure, Onset Age: 76 Sibling Family history of seizure disorder Family history of thyroid disease Mother Diabetes mellitus HLD (hyperlipidemia) Hypertension Social History Social History Smoking status: Never smoker Second hand tobacco smoke exposure: No Alcohol intake: never Substance use: never Substance use type: does not use Lack of Transportation: No Lack of Food: Never True Current Housing: I Have Housing Concerned About Future Housing: No Difficulty Paying Gas/Electric Bills: No Difficulty Paying for Meds: No Currently Unemployed: No Education: High School Diploma/GED Difficulty w/ Childcare or Family Care: No Living arrangements: alone Gender identity (if verbalized by the patient): Male Spiritual care concerns: No Exam Narrative: APPEARANCE: Well appearing, no pain, no distress, well-nourished. HEAD: normocephalic, atraumatic. EYES: PERRLA/EOMI, conjunctivae clear. NOSE: Normal no drainage EARS:TMS clear with good light reflex. THROAT: Pharynx clear, no exudate. NECK: Supple. No adenopathy, no masses. RESPIRATORY: Airway patent, respirations nonlabored. Clear to auscultation bilaterally, no rales, rhonchi, wheezing. CARDIOVASCULAR: Regular rate and rhythm without murmurs rubs or gallops. ABDOMINAL: Soft, nontender, nondistended, normal bowel sounds MUSCULOSKELETAL: Moves all extremities. Strength/ROM intact, No edema, No calf tenderness. NEURO: Alert. Cranial nerves II through XII intact. Grossly intact SKIN: Warm, dry. Normal Color Course Course Emergency Course: 77-year-old male presenting to the ED for evaluation of sore throat increased generalized weakness. Patient did feel improved in the ED. Patient was negative for influenza COVID RSV and strep. Patient and family were updated on the results of the work-up. All questions concerns were addressed. Still suspect by radiology as underlying cause for his symptoms. On reevaluation patient denies any complaints. On reexamination patient's abdomen is soft nontender with normal bowel sounds. Vital Signs Vital signs: Vital Signs Temperature 97.2 F L 10/11/22 04:40 Pulse Rate 92 10/11/22 04:40 Respiratory Rate 24 H 10/11/22
[2022-10-11 08:18] LABS: Strep Group A RT-PCR NOT DETECTED (Negative)
[2022-10-11 08:28] LABS: Influenza A QL RT-PCR Negative (Negative); Influenza B QL RT-PCR Negative (Negative); RSV RNA, RT-PCR Negative (Negative); SARS-CoV-2 RNA PCR Negative
[2022-10-11 09:03] VITALS: BP 114/61; PULSE 66; RESP 18; O2SAT 100
[2022-10-11 11:17] VITALS: BP 106/54; PULSE 84; RESP 16; O2SAT 98
== END 2022-10-11 11:21 | disposition home or self-care (01) ==
PROVIDERS: Emergency Provider Emergency Medicine; PCP Family Medicine
DX: J02.9 Acute pharyngitis, unspecified (principal); Z20.822 Contact with and (suspected) exposure to COVID-19; I25.10 Atherosclerotic heart disease of native coronary artery without angina pectoris; E11.9 Type 2 diabetes mellitus without complications; Z86.2 Personal history of diseases of the blood and blood-forming organs and certain disorders involving the immune mechanism; Z79.82 Long term (current) use of aspirin; Z98.42 Cataract extraction status, left eye; Z98.41 Cataract extraction status, right eye
CPT/HCPCS: 87637; 87651; 99283

== ENCOUNTER 2023-05-14 13:31 | Outpatient (CLI) | payer MEDICARE, SELFPAY ==
[2023-05-14 19:50] LABS: Anion Gap 10 mmol/L (8-16); Blood Urea Nitrogen 21 mg/dL (9-20); Calcium 9.8 mg/dL (8.4-10.2); Carbon Dioxide 27 mmol/L (22-30); Chloride 104 mmol/L (98-107); Cholesterol 114 mg/dL (0-200); Estimated Glomerular Filt Rate > 60; Glucose 227 mg/dL (65-110); HDL Direct 49 mg/dL; Potassium 5.4 mmol/L (3.4-5.0); Sodium 141 mmol/L (137-145); Triglycerides 84 mg/dL (<150)
[2023-05-14 20:01] LABS: LDL Cholesterol Direct 53 mg/dL
[2023-05-14 20:17] LABS: Microalbumin Urine Random 28.7 mg/L (0-16.7)
[2023-05-14 20:19] LABS: Creatinine Urine 88.4 mg/dL; MALB Creatinine Ratio 32.5 mg/g (0-30)
[2023-05-14 20:41] LABS: Basophils Absolute Auto 0.1 K/mm3 (0.0-0.1); Basophils Percent Auto 1.5 % (0.2-1.2); Eosinophils Absolute Auto 0.2 K/mm3 (0-0.3); Eosinophils Percent Auto 2.2 % (0-4.4); Hematocrit 42.7 % (42.0-52.0); Hemoglobin 13.2 g/dL (14.0-18.0); Immature Granulocyte Absolute 0.02 K/mm3 (0.00-0.031); Immature Granulocyte Percent A 0.3 % (0-0.5); Lymphocytes Absolute Auto 2.43 K/mm3 (0.9-3.2); Lymphocytes Percent Auto 33.1 % (18.3-44.2); Mean Corpuscular HGB Conc 30.9 g/dl (32-36); Mean Corpuscular Hemoglobin 31.6 pg (26-34); Mean Corpuscular Volume 102.2 fl (80-100); Monocytes Absolute Auto 0.7 K/mm3 (0.1-0.6); Monocytes Percent Auto 9.9 % (2.6-8.5); Neutrophils Absolute Auto 3.9 K/mm3 (1.3-6.7); Platelet Count Result 271 k/mm3 (150-375); Red Blood Count 4.18 M/mm3 (4.6-6.20); Red Cell Distribution Width 14.2 % (11.5-14.5); White Blood Count 7.4 K/mm3 (4.5-10.0)
[2023-05-14 21:35] LABS: Hemoglobin A1C 5.7 % (<5.7)
== END 2023-05-14 13:32 | disposition home or self-care (01) ==
PROVIDERS: PCP Nurse Practitioner Adult Health; Visit Provider Nurse Practitioner Adult Health
DX: E78.5 Hyperlipidemia, unspecified (principal); E11.9 Type 2 diabetes mellitus without complications
CPT/HCPCS: 36415; 80048; 80061; 82043; 83036; 85025

== ENCOUNTER 2023-11-08 14:05 | Outpatient (CLI) | payer MEDICARE, SELFPAY ==
--- NOTE | 2023-11-08 14:15 | ECHO_ITS ---
Patient Info Name: Anthony Mercado Age: 78 years : 1945 Gender: Male Ht: 71 in Wt: 250 lbs BSA: 2.42 m2 BP: 152 / 97 mmHg Heart Rhythm: Sinus Rhythm Technical Quality: Good Exam Date: 11/08/2023 2:19 PM Exam Location: [facility] Patient Status: Outpatient Admit Date: 11/08/2023 Staff Ordering Physician: Matias Polk DO [employer] Specialist: Esther Otero RDCS Attending Provider: Matias Polk DO Referring Physician: Jam VENEGAS; Exam Type: CA echo doppler color flow Study Info Indications I51.9 - Heart disease, unspecified Complete two-dimensional, color flow and Doppler transthoracic echocardiogram is performed. Summary 1. Complete two-dimensional, color flow and Doppler transthoracic echocardiogram is performed. 2. Left ventricular chamber dimension is mildly enlarged. 3. Mid to apical anteroseptum/septum are akinetic. [place] is akinetic. Inferoposterior wall is hypokinetic. 4. Left ventricular systolic function is moderately segmentally reduced, estimated at 40-45%. 5. The left ventricular diastolic function is grade III diastolic dysfunction. 6. E/e' 21 is elevated. 7. Left atrial chamber dimension is moderately enlarged. 8. There is trace mitral valve regurgitation. 9. No pulmonary hypertension, estimated pulmonary arterial systolic pressure is 26 mmHg. Left Ventricle E/e' 21 is elevated. Mid to apical anteroseptum/septum are akinetic. [place] is akinetic. Inferoposterior wall is hypokinetic. Left ventricular systolic function is moderately segmentally reduced, estimated at 40-45%. Left ventricular chamber dimension is mildly enlarged. The left ventricular diastolic function is grade III diastolic dysfunction. Right Ventricle Right ventricular chamber dimension is normal. Right ventricular systolic function is normal. Left Atria Left atrial chamber dimension is moderately enlarged. Right Atria Right atrial chamber dimension is normal. Aortic Valve The aortic valve is trileaflet. There is no aortic valve stenosis. There is no aortic valve regurgitation. Pulmonic Valve There is no pulmonic regurgitation. Mitral Valve There is no mitral valve stenosis. There is trace mitral valve regurgitation. Tricuspid Valve There is no tricuspid valve regurgitation. No pulmonary hypertension, estimated pulmonary arterial systolic pressure is 26 mmHg. Pericardium/Pleural There is no pericardial effusion. Inferior Vena Cava Normal inferior vena cava with >50% collapse upon inspiration consistent with normal right atrial pressure, 5 mmHg. Aorta The aortic root size at the sinus of Valsalva is normal. Left Ventricular Outflow Tract Name Value Normal LVOT 2D LVOT Diameter 2.0 cm LVOT Doppler LVOT Peak Gradient 3 mmHg LVOT Mean Gradient 2 mmHg LVOT VTI 17 cm LVOT VTI/AV VTI Ratio 0.8 LVOT Stroke Volume 52 ml LVOT CO 3.3 l/min LVOT CI 1.4 l/min/m2 Pulmonic Valve Name Value
== END 2023-11-08 14:06 | disposition home or self-care (01) ==
PROVIDERS: PCP Family Medicine; Visit Provider Internal Medicine Cardiovascular Disease
DX: I51.89 Other ill-defined heart diseases (principal); I51.7 Cardiomegaly
CPT/HCPCS: 93306

== ENCOUNTER 2024-02-17 07:04 | Outpatient (CLI) | payer MEDICARE, SELFPAY ==
[2024-02-17 07:36] LABS: Anion Gap 14 mmol/L (4-12); Blood Urea Nitrogen 41 mg/dL (9-20); Calcium 9.4 mg/dL (8.4-10.2); Carbon Dioxide 24 mmol/L (22-30); Chloride 100 mmol/L (98-107); Estimated Glomerular Filt Rate 58; Glucose 196 mg/dL (65-110); Potassium 5.1 mmol/L (3.4-5.0); Sodium 138 mmol/L (137-145)
== END 2024-02-17 07:05 | disposition home or self-care (01) ==
LOC: ANHLAB 07:06
PROVIDERS: Visit Provider Internal Medicine Cardiovascular Disease
DX: I51.9 Heart disease, unspecified (principal)
CPT/HCPCS: 36415; 80048

== ENCOUNTER 2024-09-07 07:04 | Outpatient (CLI) | payer MEDICARE, SELFPAY ==
[2024-09-07 07:52] LABS: Basophils Absolute Auto 0.1 K/mm3 (0.0-0.1); Basophils Percent Auto 1.2 % (0.2-1.2); Eosinophils Absolute Auto 0.2 K/mm3 (0-0.3); Eosinophils Percent Auto 1.7 % (0-4.4); Hematocrit 41.4 % (42.0-52.0); Hemoglobin 13.6 g/dL (14.0-18.0); Immature Granulocyte Absolute 0.04 K/mm3 (0.00-0.031); Immature Granulocyte Percent A 0.4 % (0-0.5); Lymphocytes Absolute Auto 2.24 K/mm3 (0.9-3.2); Mean Corpuscular HGB Conc 32.9 g/dl (32-36); Mean Corpuscular Hemoglobin 32.2 pg (26-34); Mean Corpuscular Volume 98.1 fl (80-100); Mean Platelet Volume 10.7 fl (7.4-10.4); Monocytes Absolute Auto 0.9 K/mm3 (0.1-0.6); Monocytes Percent Auto 10.1 % (2.6-8.5); Neutrophils Absolute Auto 5.9 K/mm3 (1.3-6.7); Neutrophils Percent Auto 62.6 % (45.5-73.1); Platelet Count Result 252 k/mm3 (150-375); Red Blood Count 4.22 M/mm3 (4.6-6.20); Red Cell Distribution Width 13.5 % (11.5-14.5); White Blood Count 9.4 K/mm3 (4.5-10.0)
[2024-09-07 08:22] LABS: Alanine Aminotransferase 21 U/L (6-50); Albumin Level 4.4 g/dL (3.5-5.1); Alkaline Phosphatase 86 U/L (38-126); Anion Gap 12 mmol/L (4-12); Aspartate Amino Transferase 24 U/L (17-59); Blood Urea Nitrogen 34 mg/dL (9-20); Calcium 9.5 mg/dL (8.4-10.2); Carbon Dioxide 26 mmol/L (22-30); Chloride 99 mmol/L (98-107); Cholesterol 127 mg/dL (0-200); Estimated Glomerular Filt Rate > 60; Glucose 175 mg/dL (65-110); HDL Direct 46 mg/dL; Potassium 5.3 mmol/L (3.4-5.0); Sodium 137 mmol/L (137-145); Triglycerides 89 mg/dL (<150)
[2024-09-07 08:34] LABS: LDL Cholesterol Direct 52 mg/dL
== END 2024-09-07 07:05 | disposition home or self-care (01) ==
PROVIDERS: Visit Provider Internal Medicine Cardiovascular Disease
DX: E78.5 Hyperlipidemia, unspecified (principal)
CPT/HCPCS: 36415; 80053; 80061; 84443; 85025

== ENCOUNTER 2024-09-10 12:28 | Outpatient (CLI) | payer MEDICARE, SELFPAY ==
--- NOTE | 2024-09-10 12:37 | ECHO_ITS ---
Patient Info Name: Anthony Mercado Age: 79 years : 1945 Gender: Male Ht: 71 in Wt: 147 lbs BSA: 1.82 m2 HR: 62 bpm BP: 145 / 87 mmHg Heart Rhythm: Sinus Rhythm Technical Quality: Good Exam Date: 09/10/2024 12:52 PM Exam Location: [facility] Patient Status: Outpatient Admit Date: 09/10/2024 Staff Ordering Physician: Matias Polk DO [employer]: Esther Otero RDCS Attending Provider: Matais Polk DO Referring Physician: Jam VENEGAS; Exam Type: CA echo doppler color flow Study Info Indications - Heart disease Complete two-dimensional, color flow and Doppler transthoracic echocardiogram is performed. Summary 1. Complete two-dimensional, color flow and Doppler transthoracic echocardiogram is performed. 2. Left ventricular chamber dimension is moderately enlarged. 3. Mid septum or apex are akinetic. 4. Left ventricular systolic function is moderately globally reduced, estimated at 40-45%. 5. E/e' 15 is elevated. 6. Left atrial chamber dimension is moderately enlarged. 7. There is mild aortic valve sclerosis. 8. There is trace aortic valve regurgitation. 9. The mitral valve has mildly calcified annulus. 10. There is trace mitral valve regurgitation. 11. There is trace tricuspid valve regurgitation. 12. Dilated inferior vena cava with >50% collapse upon inspiration consistent with elevated right atrial pressure, 10 mmHg. Left Ventricle E/e' 15 is elevated. Left ventricular systolic function is moderately globally reduced, estimated at 40-45%. Mid septum or apex are akinetic. Left ventricular chamber dimension is moderately enlarged. Right Ventricle Right ventricular chamber dimension is normal. Right ventricular systolic function is normal. Left Atria Left atrial chamber dimension is moderately enlarged. Right Atria Right atrial chamber dimension is normal. Aortic Valve The aortic valve is trileaflet. There is mild aortic valve sclerosis. There is no aortic valve stenosis. There is trace aortic valve regurgitation. Pulmonic Valve There is no pulmonic regurgitation. Mitral Valve The mitral valve has mildly calcified annulus. There is no mitral valve stenosis. There is trace mitral valve regurgitation. Tricuspid Valve RVSP is not measured due to an inadequate TR jet. There is trace tricuspid valve regurgitation. Pericardium/Pleural There is no pericardial effusion. Inferior Vena Cava Dilated inferior vena cava with >50% collapse upon inspiration consistent with elevated right atrial pressure, 10 mmHg. Aorta The aortic root size at the sinus of Valsalva is normal. Tricuspid Valve Name Value Normal Estimated PAP/RSVP RA Pressure 10 mmHg <=5 Report Signatures
--- OUTSIDE RECORDS SUMMARY | 2024-09-10 13:42 | XMS_ITS | Continuity of Care Document ---
Author Name [facility] Organization [facility] Care Team Providers Care Press Cutter Name Role Phone [facility] Unavailable Unavailable Problems Combined list of problems from [facility] and [facility] facilities. It does not include entries that were removed or entered in error. Problem Status Onset Date Problem Type Date of Resolution Comments Source Hyperlipidemia Active Condition 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 NIDDM Controlled Active Condition [facility] Diagnosis: ICD-10-CM B35.1 Tinea unguium Active Diagnosis [facility] Diagnosis: ICD-10-CM Z13.9 Encounter for screening, unspecified Active Diagnosis [facility] Diagnosis: ICD-10-CM Z13.5 Encounter for screening for eye and ear disorders Active Diagnosis [facility] Diagnosis: ICD-10-CM M20.41 Other hammer toe(s) (acquired), right foot Active Diagnosis [facility] Diagnosis: ICD-10-CM I10 Essential (primary) hypertension Active Diagnosis [facility] Medications Combined list of outpatient medications from [facility] and [facility] facilities.Medications provided include 1) outpatient medications from the last 15 months, and 2) patient-reported medications. Medication Details Route Status Patient Instructions Prescription Expires Prescription Number Last Dispense Date Ordering Provider Order Date Order Qty Source ATORVASTATI N CA 80MG TAB TAKE ONE-HALF TABLET BY MOUTH EVERY EVENING TO LOWER CHOLESTE ROL ORAL ACTIVE 05/30/2025 [id number] NEYDA OTTO 2023 45 [facility] N ATORVASTATI N CA 80MG TAB TAKE ONE-HALF TABLET BY MOUTH EVERY EVENING TO LOWER CHOLESTE ROL ORAL DISCONT INUED 03/30/2024 [id number] RAMIRO MEADE 2022 45 [facility] CARVEDILOL 6.25MG TAB TAKE ONE-HALF TABLET BY MOUTH TWICE A DAY FOR HEART. TAKE WITH FOOD. ORAL ACTIVE 05/30/2025 [id number] NEYDA OTTO 2023 90 [facility] N CARVEDILOL 6.25MG TAB TAKE ONE-HALF TABLET BY MOUTH TWICE A DAY FOR HEART. TAKE WITH FOOD. ORAL DISCONT INUED 03/30/2024 [id number] RAMIRO MEADE 2022 90 [facility] N EMPAGLIFLOZ IN 25MG TAB TAKE ONE-HALF TABLET BY MOUTH ONCE A DAY FOR DIABETES ORAL ACTIVE 04/11/2025 [id number] 5 NEYDA OTTO 2023 45 [facility] N EMPAGLIFLOZ IN 25MG TAB TAKE ONE-HALF TABLET BY MOUTH ONCE A DAY FOR DIABETES ORAL DISCONT INUED 03/08/2024 [id number] RAMIRO MEADE 2022 45 [facility] GLYBURIDE 5MG TAB TAKE ONE-HALF TABLET BY MOUTH TWO TIMES A DAY BEFORE MEALS ORAL ACTIVE RAMIRO MEADE 2021 [facility] METFORMIN HCL 1000MG TAB TAKE ONE TABLET BY MOUTH TWICE A DAY WITH MEALS FOR BLOOD SUGAR CONTROL. TAKE WITH FOOD. AVOID ALCOHOL. DISCONTI NUE BEFORE GETTING XRAY DYE. ORAL 03/30/2024 [id number] RAMIRO MEADE 2022 180 [facility] SACUBITRIL 49MG/[place] 51MG TAB TAKE ONE-HALF TABLET BY MOUTH TWICE A DAY FOR HEART ORAL DISCONT INUED (EDIT) 03/30/2024 [id number] RAMIRO MEADE 2022 90 [facility] N SACUBITRIL 97MG/[place] 103MG TAB TAKE ONE-HALF TABLET BY MOUTH TWICE A DAY FOR HEART FAILURE ORAL ACTIVE 10/18/2024 [id number] NEYDA OTTO 2023 90 [facility] Allergies, Adverse Reactions, Alerts Combined list of allergies from Department of Defense and Veterans Affairs facilities. It does not include entries that were removed or entered in error. Substance Category Reaction Severity Reaction type Status Date Reported Comments Source SIMVASTATIN Propensity to adverse reactions to drug (finding) active 7 [facility] Immunizations Combined list of available immunizations from the Department of [facility] and [facility] Affairs facilities. Immunization Series Date Given Administered By Site Reaction Lot Number CVX Code Drug Control Equipment Electrician Status Comments Source COVID-19 ([employer]), MRNA, LNP-S, PF, REGGIE-SUCROSE, 30 MCG/0.3 ML (AGES 12+ YEARS) 1 2023 JOVAN POZO LEFT DELTO ID [id number] 309 complet ed [facility] TDAP 2023 JOVAN POZO RIGHT DELTO ID [id number] 115 complet ed [facility] ZOSTER RECOMBINANT 2 2022 SANDRA SWANSON LEFT DELTO ID [id number] 187 complet ed [facility] N COVID-19 ([facility]), MRNA, LNP-S, BIVALENT, PF, 30 MCG/0.3 ML DOSE 2022 300 complet ed [facility] ZOSTER RECOMBINANT 1 2022 BRANDEN DOMINIQUE LEFT DELTO ID [id number] 187 complet ed [facility] COVID-19 (P[employer]ER), MRNA, LNP-S, PF, 30 MCG/0.3 ML DOSE 3 2020 208 complet ed [facility] COVID-19 ([employer]), MRNA, LNP-S, PF, 30 MCG/0.3 ML DOSE 2 2020 208 complet ed [facility] COVID-19 (PFIZER), MRNA, LNP-S, PF, 30 MCG/0.3 ML DOSE 1 2020 208 complet ed [facility] INFLUENZA, UNSPECIFIED FORMULATION 2010 88 complet ed [facility] PNEUMOCOCCAL, UNSPECIFIED FORMULATION 2009 109 complet ed [facility] TD(ADULT) UNSPECIFIED FORMULATION 2005 139 complet ed [facility] Results Combined list of recent chemistry, hematology and other laboratory results from [facility], ranging from 15 months to all on record, depending upon the facility. Order Name Results Value Reference Range Date Interpretation Specimen Comments Source GLUCOSE ,BLOOD- poct ([facility]) GLUCOSE [MASS/VOLUM E] IN BLOOD BY AUTOMATED TEST STRIP 106 mg/dL 72 - 99 2023 H Specimen Type: BLOOD Comment: Test Performed by: [id number] Meter #: [id number] Ordering Provider: AMY OTTO Report Released Date/Time: Sep 17, 2023 03:28 PM Reporting Lab: [address] [id number] Performing Lab: [address] [address] [facility] Vital Signs Combined list of inpatient and outpatient Vital Signs from [facility], ranging from 12 months to all on record, depending upon the facility. Vital Sign Value Date Comments Source SYSTOLIC BLOOD PRESSURE 144 09/17/2023 13:11:34 [facility] DIASTOLIC BLOOD PRESSURE 92 09/17/2023 13:11:34 [facility] PULSE OXIMETRY 99 09/17/2023 13:11:34 [facility] WEIGHT 145.9 09/17/2023 13:11:34 [facility] BMI 20 kg/m2 09/17/2023 13:11:34 [facility] PAIN 0 09/17/2023 13:11:34 [facility] TEMPERATURE 97.6 09/17/2023 13:11:34 [facility] PULSE 74 09/17/2023 13:11:34 [facility] Ozzy [facility] RESPIRATION 18 09/17/2023 13:11:34 [facility] Encounters Combined list of: 1) Encounters from Department of [facility] facilities going backup to the last 18 months, not all [place] inpatient encounters are included; 2) Encounters from the Department of [facility] facilities going backup to 280 months. Location Location Details Encounter Type Encounter Number Reason For Visit Attending Provider ADM Date DC Date Status Disposition Source [facility] OFFICE O/P EST MOD 30-39 MIN [id number] Diagnos is: ICD-10- CM I10 Essenti al (primar y) hyperte nsAMY Mckinney 03/12 [facility] Outpatient Encounter [id number] KAMILA SOLORZANO N 03/27 [facility] Outpatient Encounter [id number] 06/04 [facility] OFFICE O/P EST LOW 20-29 MIN [id number] Diagnos is: ICD-10- CM B35.1 Tinea unguium ELIAS, FILIPE [facility]LEANOR [facility] OFF[facility] O/P EST LOW 20 MIN [id number] Diagnos is: ICD-10- CM B35.1 Tinea unguium ELIAS, FILIPE ELEANOR 09[facility] OFF[facility] O/P EST MOD 30 MIN [id number] Diagnos is: ICD-10- CM I10 Essenti al (primar y) hyperte nssoniya AMY OTTO 09/16 [facility] Outpatient Encounter [id number] FAISAL MOJICA TOM Devine 10/16 [facility] Outpatient Encounter [id number] SREEKANTH DAIGLE 10/17 [facility] OFFICE O/P EST MOD 30 MIN [id number] Diagnos is: ICD-10- CM B35.1 Tinea unguium FILIPE GRIFFIN ELENAOR 12/03 [facility] Outpatient Encounter [id number] 12/23 [facility] Outpatient Encounter [id number] 12/29 [facility] Outpatient Encounter [id number] 01/07 [facility] Outpatient Encounter [id number] 02/27 [facility] OFFICE O/P EST LOW 20 MIN [id number] Diagnos is: ICD-10- CM M20.41 Other hammer toe(s) (acquir ed), right foot FILIPE GRIFFIN 03/[address] [facility] Outpatient Encounter [id number] 03/03 [facility] IMG RTA DETCJ/MNTR DS STAFF [id number] Diagnos is: ICD-10- CM Z13.5 Encount er for screeni ng for eye and ear disorde SA DAKOTA Martines 03/03 [facility] Outpatient Encounter [id number] Diagnos is: ICD-10- CM Z13.9 Encount er for screeni ng, unspeci Jere Fischer 03/04 [facility] Outpatient Encounter [id number] 04/09 [facility] Outpatient Encounter [id number] 05/28 [facility] Outpatient Encounter [id number] 05/30 [facility] OFFICE O/P EST LOW 20 MIN [id number] Diagnos is: ICD-10- CM B35.1 Tinea unguium FILIPE GRIFFIN 06/19 [facility] Social History Combined list of available smoking, tobacco, and other social history from Department of Defense and Veterans Affairs facilities. Social History Type Response Date Comment Sourc e Tobacco smoking status [facility] VA-TOBACCO NEVER USED 03/12/2023 [facility] History of tobacco use [place]-TO[place] NEVER USED 02/13/2022 [facility] History of tobacco use LIFETIME NON-USER OF TOBACCO 03/07/2007 [facility] History of tobacco use LIFETIME NON-TOBA COLLECTION SPECIALIST USER 03/15/2006 [facility] History of tobacco use LIFETIME NON-TOBA COLLECTION SPECIALIST USER 05/28/2005 [facility] History of tobacco use LIFETIME NON-TOBA COLLECTION SPECIALIST USER 09/13/2003 [facility] Plan of Care List of future care activities from Department of [facility] facilities. Additional future care activities may be listed in the Assessment and Plan section. Date/Time Care Activity Care Activity Detail Facili ty 09/18/2024 AMBULATORY - SURGERY AMBULATORY - SURGERY [facility]
--- OUTSIDE RECORDS SUMMARY | 2024-09-10 13:42 | XMS_ITS | Clinical Summary ---
Author Organization [facility] Address [address] [place] [address] Care Team Providers Care Gas Engine Operator Compressors Name Role Phone BobbyanuSid DO Primary Care Provider [phone] Matias Polk DO Unavailable [phone] Allergies No known active allergies Medications metFORMIN (GLUCOPHAGE) 1,000 mg tablet Take 1,000 mg by mouth 2 (two) times a day with meals Active carvediloL (COREG) 3.125 mg tablet Take 3.125 mg by mouth 2 (two) times a day with meals Active glyBURIDE (DIABETA) 2.5 mg tablet Take 2.5 mg by mouth 2 (two) times a day with meals Active aspirin 81 mg enteric coated tablet Take 81 mg by mouth daily Active sacubitriL-vals elvin (ENTRESTO) 24-26 mg tabletIndicatio ns:chronic heart failure Take 1 tablet by mouth 2 (two) times a day. rx [id number] Indications: chronic heart failure Active atorvastatin (LIPITOR) 40 mg tablet Take 1 tablet (40 mg total) by mouth nightly 30 tablet 3 2 Active spironolactone (ALDACTONE) 25 mg tablet Take 1 tablet (25 mg total) by mouth daily 30 tablet 3 2 Active Active Problems Problem Noted Date Diagnosed Date Chest pain, unspecified type 08/21/2022 Severe malnutrition 06/09/2021 Coronary artery disease due to calcified coronar y lesion 06/06/2021 Coronary artery disease invo lving [place] coronary artery of [place] heart without angina pectoris 12/07/2020 Ischemic cardiomyopathy 12/07/2020 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 Hyperkalemia Immunizations Immunization Administration Dates Next Due Influenza, Quadrivalent, Hig h Dose, Preservative Free, Intrr 08/22/2022 Surgical History Surgery Date Site/Laterality Comments CATARACT EXTRACTION, BILATERAL 07/08/2019 - 07/07/2020 CORONARY ARTERY BYPASS GRAFT Medical History Medical History Date Comments Non-insulin dependent type 2 diabetes mellitus ( HCC) Cataracts, bilateral Depression Coronary artery disease Atrial fibrillation (HCC) Family History Medical History Relation Name Comments Coronary artery disease Father Heart disease Father Relation Name Status Comments Father Mother Social History Tobacco Use Types Packs/Day Years Used Date Smoking Tobacco: Never Smokeless Tobacco: Never Social Connection and Isolation Panel [NHANES] A nswer Date Recorded In a typical week, how many times do you talk on the phone with family, friends, or neighbors? Twice a week 08/22/2022 How often do you get together with friends or re latives? Twice a week 08/22/2022 How often do you attend baptism or moravian serv ices? Never 08/22/2022 Do you belong to any clubs o r organizations such as baptism groups, unions, fraternal or athletic groups, or school groups? No 08/22/2022 How often do you attend meet ings of the clubs or organizations you belong to? Never 08/22/2022 Are you , , di vorced, , never , or living with a partner? 08/22/2022 AUDIT-C Answer Date Recorded Q1: How often do you have a drink containing alc ohol? Never 03/08/2021 Average Number of Drinks Not on file 021 Q3: How often do you have si x or more drinks on one occasion? Never 03/08/2021 Overall Financial Resource Strain (CARDIA) Answe r Date Recorded How hard is it for you to pa y for the very basics like food, housing, medical care, and heating? Not hard at all 08/22/2022 Hunger Vital Sign Answer Date Recorded Within the past 12 months, y ou worried that your food would run out before you got the money to buy more. Never true 02/15/20 23 Within the past 12 months, t he food you bought just didn't last and you didn't have money to get more. Never true 08/22/2022 PRAPARE - Transportation Answer Date Re corded In the past 12 months, has l ack of transportation kept you from medical appointments or from getting medications? No 08/08 In the past 12 months, has l ack of transportation kept you from meetings, work, or from getting things needed for daily living? No 08/22/2022 Personal Safety Answer Date Recorded Getting School Help Needed Not on file 08/23 Education Answer Date Recorded What is the highest level of school you have completed or the highest degree you have received? Some college, no degree 08/22/2022 Sex and Gender Information Value Date Recorded Sex Assigned at Not on file Legal Sex Male 3:01 PM WEB MANAGER Gender Identity Not on file Sexual Orientation Not on file Obstetrics History Last Filed Vital Signs Vital Sign Reading Time Taken Comments Blood Pressure 111/62 08/22/2022 10:22 AM WEB MANAGER Pulse 62 08/22/2022 10:22 AM WEB MANAGER Temperature 36.7 C (98 F) 08/22/2022 8:14 AM WEB MANAGER Respiratory Rate 20 08/22/2022 8:14 AM WEB MANAGER Oxygen Saturation 99% 08/22/2022 8:14 AM WEB MANAGER Inhaled Oxygen Concentration - - Weight 70.2 kg (154 lb 12.8 oz) 023 12:50 AM WEB MANAGER Height 180.3 cm (5' 11 ) 08/22/2022 12: 50 AM WEB MANAGER Body Mass Index 21.59 08/22/2022 12:50 AM WEB MANAGER Plan of Treatment Health Maintenance Due Date Last Done Comments Depression Screening 1945 DTaP/Tdap/Td Vaccine (1 - Tdap) 1955 Hepatitis B Screening 1962 Well Visit 65+ 2009 Pneumococcal vaccine 65+ (2 of 2 - PPSV23) 07/08/2010 07/08/2009 Zoster Vaccine (2 of 2) 10/09/2022 08/14/2022 Fall Risk Assessment 08/22/2023 08/22/2022 Influenza Vaccine (#1) 2024 08/22/2022 Insurance MEDICARE MEDICARE MEDICARE MEDICARE Advance Directives For more information, please contact: [phone] * Full Code (Latest Code Status on File) Date Activated Date Inactivated Comments 08/21/2022 11:42 PM 08/22/2022 7:04 PM * Full Code Date Activated Date Inactivated Comments 06/06/2021 2:34 PM 06/14/2021 4:31 PM Care Teams Gas Engine Operator Compressors Relationship Specialty Start Date End Date Sid Ling DO PCP - General Family Medicine 10/27/20 Matias Polk DO [address] [facility] [address] [place] [address] Referring Physician Internal Medicine 06/06/21
--- OUTSIDE RECORDS SUMMARY | 2024-09-10 13:42 | XMS_ITS | Referral Summary ---
Author Organization [facility] Address [address] [place] [address] Care Team Providers Care Weatherization And Housing Inspector Name Role Phone Sid Ling DO Primary Care Provider [phone] Matias Polk DO Unavailable [phone] Allergies No known active allergies Medications metFORMIN [...] mouth 2 (two) times a day. 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 Never 08/22/2022 Do you belong to any clubs o r organizations such as adventist groups, unions, fraternal or athletic groups, or [...] the money to buy more. 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 LANDSCAPE Gender Identity Not on file Sexual Orientation Not on file Last Filed Vital Signs Vital Sign Reading Time Taken Comments Blood Pressure 111/62 08/22/2022 10:22 AM SUPERVISOR LANDSCAPE Pulse 62 08/22/2022 10:22 AM SUPERVISOR LANDSCAPE Temperature 36.7 C (98 F) 08/22/2022 8:14 AM SUPERVISOR LANDSCAPE Respiratory Rate 20 08/22/2022 8:14 AM SUPERVISOR LANDSCAPE Oxygen Saturation 99% 08/22/2022 8:14 AM SUPERVISOR LANDSCAPE Inhaled Oxygen Concentration - - Weight 70.2 kg (154 lb 12.8 oz) 023 12:50 AM SUPERVISOR LANDSCAPE Height 180.3 cm (5' 11 ) 08/22/2022 12: 50 AM SUPERVISOR LANDSCAPE Body Mass Index 21.59 08/22/2022 12:50 AM SUPERVISOR LANDSCAPE Plan of Treatment Not on file Insurance MEDICARE [facility] Address: [facility] [address] [place] [address] MEDICARE MEDICARE MEDICARE Advance Directives For more information, please contact: [phone] * Full Code (Latest Code Status on File) Date Activated Date Inactivated Comments 08/21/2022 11:42 PM 08/22/2022 7:04 PM * Full Code Date Activated Date Inactivated Comments 06/06/2021 2:34 PM 06/14/2021 4:31 PM Care Teams Weatherization And Housing Inspector Relationship Specialty Start Date End Date Sid Ling DO PCP - General Family Medicine 10/27/20 Matias Polk DO [address] [facility] [address] [place] [address] Referring Physician Internal Medicine 06/06/21
== END 2024-09-10 12:29 | disposition home or self-care (01) ==
PROVIDERS: PCP Internal Medicine Cardiovascular Disease; Visit Provider Internal Medicine Cardiovascular Disease
DX: I50.20 Unspecified systolic (congestive) heart failure (principal); I08.3 Combined rheumatic disorders of mitral, aortic and tricuspid valves
CPT/HCPCS: 93306

== ENCOUNTER 2025-02-16 07:35 | Outpatient (CLI) | payer MEDICARE, SELFPAY ==
--- OUTSIDE RECORDS SUMMARY | 2025-02-16 07:39 | XMS_ITS | Encounter Summary ---
Author Name [facility] [place] [facility] [place] [facility] [place] Address [address] [place] [address] Care Team Providers Care Market Research Interviewer Name Role Phone AMY OTTO Primary Care Provider Unavailabl ELIZABET Prado Unavailable Unavailab le Insurance Providers: All historical and current Section Date Range: From patient's date of to the date document was created. This section includes the names of all active insurance providers for the patient. Insurance Provider Type of Coverage Plan Name Start of Policy Coverage End of Policy Coverage Group Number Member ID Insurance Provider's Telephone Number Policy Mendez's Name Patient's Relationship to Policy Mendez MEDICARE (WNR) MEDICARE (M) PART A Jun 07, 2009 PART A [id number] MOMO BOLTON JR PATIENT MEDICARE (WNR) MEDICARE (M) PART B Jun 07, 2009 PART B [id number] MOMO BOLTON JR PATIENT Selected Encounter This section includes the information on record at [place] for the Encounter. Date/Time Encounter Type Encounter Description Reason Provider Source Sep 29, 2024 12:00 PM OFFICE O/P EST LOW 20 MIN PODIATRY ICD-10-CM B35.1 Tinea unguium CHALO GRIFFIN Jessie Encounter Template Text not used by [place] Assessments - Encounter Diagnoses This section includes the primary and secondary diagnoses documented for the Encounter. Date/Time Primary/Secondary Diagnosis Diagnosis Name Provider Source Sep 29, 2024 12:42 PM PRIMARY Tinea unguium [facility] Sep 29, 2024 12:42 PM SECONDARY Congenital pes cavus, left foot [facility] Sep 29, 2024 12:42 PM SECONDARY Congenital pes cavus, right foot [facility] Sep 29, 2024 12:42 PM SECONDARY Other hammer toe(s) (acquired), left foot [facility] Sep 29, 2024 12:42 PM SECONDARY Other hammer toe(s) (acquired), right foot [facility] Sep 29, 2024 12:42 PM SECONDARY Type 2 diabetes mellitus with diabetic neuropathy, unsp [facility] Plan of Treatment: Future Appointments (+ 6 months) and Future Tests (+/- 45 days) The Plan of Treatment section includes future care activities for the patient from all [facility]. This section includes future appointments and future orders which are active, pending or scheduled. Future Appointments This section includes appointments that were scheduled to occur 6 months from the date of the Encounter, up to a maximum of 20 appointments. The data comes from all [place] treatment facilities. Appointment Date/Time Appointment Type Appointme nt Facility Name Dec 30, 2024 08:00 AM AMBULATORY - SURGERY [facility] Mar 30, 2025 08:00 AM AMBULATORY - SURGERY [facility] Social History: Smoking Status (Most current) and Tobacco Use (All prior to encounter date) This section includes the most current, and the historical, smoking and tobacco- related health factors from the [place] facility where the Encounter took place. Current Smoking Status This section includes the most current smoking, or tobacco-related health factor, from the [place] facility where the Encounter took place. Date/Time Current Smoking Status Kory sams Mar 12, 2023 03:15 PM VA-TOBACCO NEVER USED [facility] Tobacco Use History This section includes a history of the smoking, or tobacco-related health factors, that were collected on or before the date of the Encounter. The data comes from the [place] facility where the Encounter took place. Date/Time Smoking Status/Tobacco Use Comment F acility Feb 13, 2022 02:15 PM VA-TOBACCO NEVER USED [facility] Mar 07, 2007 08:00 AM LIFETIME NON-USER OF TOBACCO [facility] Mar 15, 2006 01:30 PM LIFETIME NON-TOBACCO USER [facility] May 28, 2005 11:30 AM LIFETIME NON-TOBACCO USER [facility] Sep 13, 2003 02:00 PM LIFETIME NON-TOBACCO USER [facility] Encounter Notes: All associated encounter notes This section contains the clinical notes associated to the Encounter. Date/Time Encounter Note(s) Provider Source Sep 29, 2024 11:47 AM PODIATRY NOTE: LOCAL TITLE: PODIATRY NOTE STANDARD TITLE: PODIATRY NOTE DATE OF NOTE: SEP 29, 2024@11:47 ENTRY DATE: SEP 29, 2024@11:47:35 AUTHOR: FILIPE GRIFFIN EXP COSIGNER: URGENCY: STATUS: COMPLETED S: PT PRESENTS TO CLINIC TODAY WITH CHIEF COMPLAINT OF ELONGATED NAILS. PT DENIES ANY SYSTEMIC SIGNS OF INFECTION OR RECENT TRAUMA. PT IS DIABETIC AND IS FOLLOWED BY HIS PCP FOR HIS DM. PT IS COOPERATIVE AND PLEASANT UPON EXAM. HE IS TAKING ASA DAILY. HE COMPLAINS OF OCCASSIONAL NEUROPATHY PAIN. HE DENIES ANY NEW CHANGES TO HIS MEDICAL HX SINCE HIS LAST FOOT EXAM. HE IS WITH DAUGHTER TODAY WHO IS HAVING A BIRTHDAY. HE IS VERY DISTRUBED BY CURRENT POLITICS. SYMPTOMS WORSENDED BY: NO DEBRIDEMENT SYMTOMS IMPROVED BY: DEBRIDEMENT PAIN SCALE: 0/10. HGA1C: CONTROLLED PER PATIENT. 6 0r 7 ALLERGIES:SIMVASTATIN O: PT IS ALERT AND ORIENTED X 3 AND IN NAD. HE IS AMBULATING WITHOUT ASSISTANCE. HE IS WEARING HIS VA SHOES AND INSERTS. VASC: PALPABLE PULSES HOWEVER DECREASED, NO ISCHEMIC CHANGES NOTED ON EXAM. CAPP REFILL SLUGGISH AT 3 SECONDS. NO DIGITAL HAIR GROWTH NOTED. FEET ARE COOL TO TOUCH. AUG 2022: TAYE EXAMINATION RIGHT LEFT TAYE: 1.19 TAYE: 1.24 TOE PRESSURES (mm Hg) RIGHT: 154 LEFT: 168 Per Vascular Provider: IMPRESSION: Normal bilateral lower extremity arterial Doppler study at rest based on Doppler wave forms and within normal toe pressures. NEURO: GROSSLY INTACT, DECREASED PROTECTIVE LIGHT SENSATION PER SEMMES BRUNO 5.07 MONOFILAMENT TO MOST SITES TESTED B/L HOWEVER NOT CONSISTANT AND PT MOVES. DERM: NAILS ELONGATED THICKENED, DYSTROPHIC AND MYCOTIC X 10 WITH SIGNFICANT SUBUNGAL DEBRIES. NO ASCENDING CELLULITIS. NO ERYTHAMA, NO DRAINAGE, AND NO OPEN WOUNDS NOTED ON EXAM. NO OPEN WOUNDS NO SIGNS OF INFECTION DRAINAGE ETC. OR NEED FOR CULTURE. MUS/SK: GOOD MUSCLE STRENGTH IN ALL 4 QUADRANTS. NO DELL NOTED IN THE ACHILLES. ROM AT THE ANKLE WITHIN NORMAL LIMITS. HAMMER TOES NOTED B/L. PES CAVUS NOTED B/L. A/P 1 ONYCHOMYCOSIS/ MANUALLY DEBRIDED X 1O IN ORDER TO PREVENT POSSIBLE SECONDARY INFECTION. BETADINE APPLIED ROUTINELY. 2 DIABETIC NEUROPATHY/ PT EDUCATION. PT TO F/U WITH PCP. PT ADVISED OF NEED FOR HIS CUSTOM MADE INSERTS AND EXTRA DEPTH SHOES. 3 PES CAVUS B/L/ PT TO WEAR HIS CUSTOM MADE INSERTS AND RX SHOES WITH PRECAUTIONS. 4 HAMMER TOES B/L/ PT TO WEAR HIS EXTRA DEPTH SHOES WITH ACCOMMODATIONS. PT TO RTC FOR F/U 3 MONTHS. DISCUSSED TREATMENT OPTIONS WITH PATIENT AND PATIENT ADVISED TO GO TO THE ER IF ANY INCREASE IN PAIN REDNESS OR ERYTHEMA IS NOTED. PT STATES UNDERSTANDING. MEDICATION/RECONCILLIATI ON: REVIEWED AND RECONCILLED ALL PODIATRIC GENERATED MEDICATIONS. PER [place] DIRECTIVE 1122 PT IS CONSIDERED TO BE MODERATE TO HIGH RISK. /dusty/ FILIPE GRIFFIN Staff Physician, Podiatry Signed: 09/29/2024 12:42 FILIPE GRIFFIN [facility]
--- OUTSIDE RECORDS SUMMARY | 2025-02-16 07:39 | XMS_ITS | Encounter Summary ---
Author Name [facility] [place] [facility] [place] Address [address] [place] [address] Care Team Providers Care Meat Pumper Name Role Phone AMY OTTO Primary Care [...] PART A Jun 07, 2009 PART A [id number] [phone] MOMO BOLTON JR PATIENT MEDICARE (WNR) MEDICARE (M) PART B Jun 07, 2009 PART B [id number] MOMO BOLTON JR PATIENT Selected Encounter This section includes the information on record at [place] for the Encounter. Date/Time Encounter Type Encounter Description Reason Provider Source Dec 30, 2024 08:00 AM OFFICE O/P EST LOW 20 MIN PODIATRY ICD-10-CM B35.1 Tinea unguium CHALO GRIFFIN Jessie Encounter Template Text not used by [place] Assessments - Encounter Diagnoses This section includes the primary and secondary diagnoses documented for the Encounter. Date/Time Primary/Secondary Diagnosis Diagnosis Name Provider Source Dec 30, 2024 08:20 AM PRIMARY Tinea unguium [facility] Dec 30, 2024 08:20 AM SECONDARY Congenital pes cavus, left foot [facility] Dec 30, 2024 08:20 AM SECONDARY Congenital pes cavus, right foot [facility] Dec 30, 2024 08:20 AM SECONDARY Other hammer toe(s) (acquired), left foot [facility] Dec 30, 2024 08:20 AM SECONDARY Other hammer toe(s) (acquired), right foot [facility] Dec 30, 2024 08:20 AM SECONDARY Type 2 diabetes mellitus with diabetic neuropathy, unsp [facility] Plan of Treatment: Future Appointments (+ 6 months) and Future Tests (+/- 45 days) The Plan of Treatment section includes future care activities for the patient from [facility] [place] [facility] This section includes future appointments and future orders which are active, pending or scheduled. Future Appointments This section includes appointments that were scheduled to occur 6 months from the date of the Encounter, up to a maximum of 20 appointments. The data comes from all [place] treatment facilities. Appointment Date/Time Appointment Type Appointme nt Facility Name Mar 30, 2025 08:00 AM AMBULATORY - SURGERY [facility] Social History: Smoking Status (Most current) and Tobacco Use (All prior to encounter date) This section includes the most current, and the historical, smoking and tobacco- related health factors from the [place] facility where the Encounter took place. Current Smoking Status This section includes the most current smoking, or tobacco-related health factor, from the [place] facility where the Encounter took place. Date/Time Current Smoking Status Kory sams Mar 12, 2023 03:15 PM VA-TOBACCO NEVER USED [facility] Tobacco Use History This section includes a history of the smoking, or tobacco-related health factors, that were collected on or before the date of the Encounter. The data comes from the [place] facility where the Encounter took place. Date/Time Smoking Status/Tobacco Use Comment F acility Feb 13, 2022 02:15 PM VA-TOBACCO NEVER USED [facility] Mar 07, 2007 08:00 AM LIFETIME NON-USER OF TOBACCO [facility] Mar 15, 2006 01:30 PM LIFETIME NON-TOBACCO USER [facility] May 28, 2005 11:30 AM LIFETIME NON-TOBACCO USER [facility] Sep 13, 2003 02:00 PM LIFETIME NON-TOBACCO USER [facility] Encounter Notes: All associated encounter notes This section contains the clinical notes associated to the Encounter. Date/Time Encounter Note(s) Provider Source Dec 30, 2024 08:19 AM SUICIDE PREVENTION NOTE: LOCAL TITLE: ADMISSION SUICIDE SCREENING STANDARD TITLE: SUICIDE PREVENTION NOTE DATE OF NOTE: DEC 30, 2024@08:19 ENTRY DATE: DEC 30, 2024@08:19:16 AUTHOR: RISHABH DUMONT EXP COSIGNER: URGENCY: STATUS: COMPLETED C-SSRS Screening [place] Suicide Severity Rating Scale (C-SSRS) screener 1. Over the past month, have you wished you were or wished you could go to sleep and not wake up? No 2. Over the past month, have you had any actual thoughts of killing yourself? No 3. Over the past month, have you been thinking about how you might do this? Response not required due to responses to other questions. 4. Over the past month, have you had these thoughts and had some intention of acting on them? Response not required due to responses to other questions. 5. Over the past month, have you started to work out or worked out the details of how to kill yourself? Response not required due to responses to other questions. 6. If yes, at any time in the past month did you intend to carry out this plan? Response not required due to responses to other questions. 7. In your lifetime, have you ever done anything, started to do anything, or prepared to do anything to end your life (for example, collected pills, obtained a gun, gave away valuables, went to the roof but didn't jump)? No 8. If YES, was this within the past 3 months? Response not required due to responses to other questions. /dusty/ RISHABH JUNG BASKET GRADER CERTIFED NURSE MARKETING AND PUBLIC RELATIONS MANAGER Signed: 12/30/2024 08:21 RISHABH DUMONT [facility] Dec 30, 2024 07:59 AM PODIATRY NOTE: LOCAL TITLE: PODIATRY NOTE STANDARD TITLE: PODIATRY NOTE DATE OF NOTE: DEC 30, 2024@07:59 ENTRY DATE: DEC 30, 2024@07:59:51 AUTHOR: FILIPE GRIFFIN EXP COSIGNER: URGENCY: STATUS: [...] MEDICAL HX SINCE HIS LAST FOOT EXAM. SYMPTOMS WORSENDED BY: NO DEBRIDEMENT SYMTOMS IMPROVED [...] AND RECONCILLED ALL PODIATRIC GENERATED MEDICATIONS. PER [place] DIRECTIVE 1122 PT IS CONSIDERED TO BE MODERATE TO HIGH RISK. /dusty/ FILIPE GRIFFIN Staff Physician, Podiatry Signed: 12/30/2024 08:20 FILIPE GRIFFIN [facility]
--- OUTSIDE RECORDS SUMMARY | 2025-02-16 07:39 | XMS_ITS | Continuity of Care Document ---
Author Name [facility] Organization [facility] Care Team Providers Care Heat Regulator Name Role Phone [facility] Unavailable Unavailable Problems Combined list of problems [place] [facility] [place] and [facility] facilities. It does not include entries that were removed or entered in error. 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 [facility] NIDDM Controlled Active Condition [facility] Diagnosis: ICD-10-CM B35.1 Tinea unguium Active Diagnosis [facility] Diagnosis: ICD-10-CM Z13.9 Encounter for screening, unspecified Active Diagnosis [facility] Diagnosis: ICD-10-CM Z13.5 Encounter for screening for eye and ear disorders Active Diagnosis [facility] Diagnosis: ICD-10-CM M20.41 Other hammer toe(s) (acquired), right foot Active Diagnosis [facility] Diagnosis: ICD-10-CM I10 Essential (primary) hypertension Active Diagnosis [facility] Medications Combined list of outpatient medications from [facility] and [facility] facilities.Medications provided include 1) outpatient medications from the last 15 months, and 2) patient-reported medications. Medication Details Route Status Patient Instructions Prescription Expires Prescription Number Last Dispense Date Ordering Provider Order Date Order Qty Source ATORVASTATI N CA 80MG TAB TAKE ONE-HALF TABLET BY MOUTH EVERY EVENING TO LOWER CHOLESTE ROL ORAL ACTIVE 05/30/2025 [id number] NEYDA OTTO 2023 45 [facility] N ATORVASTATI N CA 80MG TAB TAKE ONE-HALF TABLET BY MOUTH EVERY EVENING TO LOWER CHOLESTE ROL ORAL DISCONT INUED 03/30/2024 [id number] RAMIRO MEADE 2022 45 [facility] CARVEDILOL 6.25MG TAB TAKE ONE-HALF TABLET BY MOUTH TWICE A DAY FOR HEART. TAKE WITH FOOD. ORAL ACTIVE 05/30/2025 [id number] 5 NEYDA OTTO [address] [place] [address] DIVISIO N CARVEDILOL 6.25MG TAB TAKE ONE-HALF TABLET BY MOUTH TWICE A DAY FOR HEART. TAKE WITH FOOD. ORAL DISCONT INUED 03/30/2024 [id number] RAMIRO MEADE [address] [place] [address] DIVISIO N EMPAGLIFLOZ IN 25MG TAB TAKE ONE-HALF TABLET BY MOUTH ONCE A DAY FOR DIABETES ORAL ACTIVE 04/11/2025 [id number] 5 NEYDA OTTO [address] [place] [address] DIVISIO N EMPAGLIFLOZ IN 25MG TAB TAKE ONE-HALF TABLET BY MOUTH ONCE A DAY FOR DIABETES ORAL DISCONT INUED 03/08/2024 [id number] RAMIRO MEADE [address] [place], [place] [address]ISIO N GLYBURIDE 5MG TAB TAKE ONE-HALF TABLET BY MOUTH TWO TIMES A DAY BEFORE MEALS ORAL ACTIVE RAMIRO MEADE 2021 [facility] N SACUBITRIL 97MG/[place] 103MG TAB TAKE ONE-HALF TABLET BY MOUTH TWICE A DAY FOR HEART FAILURE ORAL ACTIVE 12/08/2025 [id number] 5 NEYDA OTTO [address] [place] [address] DIVISIO N SACUBITRIL 97MG/[place] 103MG TAB TAKE ONE-HALF TABLET BY MOUTH TWICE A DAY FOR HEART FAILURE ORAL DISCONT INUED 10/18/2024 [id number] NEYDA OTTO 2023 90 [facility] Allergies, Adverse Reactions, Alerts Combined list of allergies from Department of Defense and [facility] facilities. It does not include entries that were removed or entered in error. Substance Category Reaction Severity Reaction type Status Date Reported Comments Source SIMVASTATIN Propensity to adverse reactions to drug (finding) active 7 [facility] Immunizations Combined list of available immunizations from the Department of Defense and Veterans Affairs facilities. Immunization Series Date Given Administered By Site Reaction Lot Number CVX Code Drug Surface Plate Finisher Status Comments Source COVID-19 (Pulmatrix), MRNA, LNP-S, PF, REGGIE-SUCROSE, 30 MCG/0.3 ML (AGES 12+ YEARS) 1 2023 JOVAN POZO LEFT DELTO ID [id number] 309 complet ed [facility] AT [facility] N TDAP 2023 JOVAN POZO RIGHT DELTO ID [id number] 115 complet ed [facility] AT [facility] N ZOSTER RECOMBINANT 2 2022 SANDRA SAWNSON LEFT DELTO ID [id number] 187 complet ed [facility]MINISTE [facility] AT [facility] N COVID-19 (Pulmatrix), MRNA, LNP-S, BIVALENT, PF, 30 MCG/0.3 ML DOSE 2022 300 complet ed Booster for Series, HISTORICA L INFORMATI ON - FROM PATIENT'S WRITTEN RECORD, [facility] N ZOSTER RECOMBINANT 1 2022 BRANDEN DOMINIQUE LEFT DELTO ID [id number] 187 complet ed [facility]MIN[facility]E [facility] AT [facility] N COVID-19 (Pulmatrix), MRNA, LNP-S, PF, 30 MCG/0.3 ML DOSE 3 2020 208 complet ed [facility] COVID-19 (PFIZER), MRNA, LNP-S, PF, 30 MCG/0.3 ML DOSE 2 2020 208 complet ed [facility] COVID-19 (Pulmatrix), MRNA, LNP-S, PF, 30 MCG/0.3 ML DOSE 1 2020 208 complet ed [facility] INFLUENZA, UNSPECIFIED FORMULATION 2010 88 complet ed [facility] N PNEUMOCOCCAL, UNSPECIFIED FORMULATION 2009 109 complet ed [facility] TD(ADULT) UNSPECIFIED FORMULATION 2005 139 complet ed [facility] Results Combined list of recent chemistry, hematology and other laboratory results from Department of [facility] and [facility], ranging from 15 months to all on record, depending upon the facility. Order Name Results Value Reference Range Date Interpretation Specimen Comments Source GLUCOSE ,BLOOD- poct (ST) GLUCOSE [MASS/VOLUM E] IN BLOOD BY AUTOMATED TEST STRIP 106 mg/dL 72 - 99 2023 H Specimen Type: BLOOD Comment: Test Performed by: [id number] Meter #: [id number] Ordering Provider: AMY OTTO Report Released Date/Time: Sep 17, 2023 03:28 PM Reporting Lab: [facility] [address] [facility] [address] Performing Lab: [address] [address] [facility] Encounters Combined list of: 1) Encounters from Department of Veterans Affairs facilities going backup to the last 18 months, not all [place] inpatient encounters are included; 2) Encounters from the Department of [facility] facilities going backup to 280 months. Location Location Details Encounter Type Encounter Number Reason For Visit Attending Provider ADM Date DC Date Status Disposition Source [facility] OFFICE O/P EST LOW 20 MIN [id number] Diagnos is: ICD-10- CM B35.1 Tinea unguium FILIPE GRIFFIN 09/04 [facility] OFFICE O/P EST MOD 30 MIN [id number] Diagnos is: ICD-10- CM I10 Essenti al (primar y) hyperte nsion AMY OTTO 09/16 [facility] Outpatient Encounter [id number] YUNIORFAISAL TOM Devine 10/16 [facility] Outpatient Encounter [id number] SREEKANTH DAIGLE 10/17 [facility] OFFICE O/P EST MOD 30 MIN [id number] Diagnos is: ICD-10- CM B35.1 Tinea unguium FILIPE GIRFFIN 12/03 [facility] Outpatient Encounter [id number] 12/23 [facility] Outpatient Encounter [id number] 12/29 [facility] Outpatient Encounter [id number] 01/07 [facility] Outpatient Encounter [id number] 02/27 [facility] OFFICE O/P EST LOW 20 MIN [id number] Diagnos is: ICD-10- CM M20.41 Other hammer toe(s) (acquir ed), right foot FILIPE GRIFFIN 03/03 [facility] Outpatient Encounter [id number] 03/03 [facility] IMG RTA DETCJ/MNTR DS STAFF [id number] Diagnos is: ICD-10- CM Z13.5 Encount er for screeni ng for eye and ear disorde SA DAKOTA Martines 03/03 [facility] Outpatient Encounter [id number] Diagnos is: ICD-10- CM Z13.9 Encount er for screeni ng, unspeci Jere Fischer 03/04 [facility] Outpatient Encounter [id number] 04/09 [facility] Outpatient Encounter [id number] 05/28 [facility] Outpatient Encounter [id number] 05/30 [facility] OFFICE O/P EST LOW 20 MIN [id number] Diagnos is: ICD-10- CM B35.1 Tinea unguium ELIAS, FILIPE ELEANOR 06/19 [facility] Outpatient Encounter [id number] 09/18 [facility] Outpatient Encounter [id number] 09/18 [facility] OFFICE O/P EST LOW 20 MIN [id number] Diagnos is: ICD-10- CM B35.1 Tinea unguium ELIAS, FILIPE ELEANOR 09/29 [facility] OFFICE O/P EST LOW 20 MIN [id number] Diagnos is: ICD-10- CM B35.1 Kristen rogersuiFILIPE Antunez 12/30 [facility] Social History Combined list of available smoking, tobacco, and other social history from Department of Defense and [facility] Affairs facilities. Social History Type Response Date Comment Sour e Tobacco smoking status NHIS PR-TOBACCO NEVER USED 03/12/2023 [facility] History of tobacco use LIFETIME NON-USER OF TOBACCO 03/07/2007 [facility] History of tobacco use LIFETIME NON-TOBA NET FRONT END DEVELOPER USER 03/15/2006 [facility] History of tobacco use LIFETIME NON-TOBA NET FRONT END DEVELOPER USER 05/28/2005 [facility] History of tobacco use LIFETIME NON-TOBA NET FRONT END DEVELOPER USER 09/13/2003 [facility] Plan of Care List of future care activities from [facility] facilities. Additional future care activities may be listed in the Assessment and Plan section. Date/Time Care Activity Care Activity Detail Astrid xie 03/30/2025 AMBULATORY - SURGERY AMBULATORY - SURGERY [facility]
--- OUTSIDE RECORDS SUMMARY | 2025-02-16 07:39 | XMS_ITS | Clinical Summary ---
Author Organization [facility] Address [address] [place] [id number] Care Team Providers Care Revenue Cycle Analyst Name Role Phone BobbyanuSid DO Primary Care Provider [phone] Matias Polk DO Unavailable [phone] Allergies No known active allergies Medications metFORMIN [...] mouth 2 (two) times a day. rx [id number] Indications: chronic heart failure Active atorvastatin (LIPITOR) [...] lesion 06/06/2021 Coronary artery disease invo lving [place] coronary artery of [place] heart without angina pectoris 12/07/2020 Ischemic cardiomyopathy [...] Tobacco: Never Social Connection and Isolation Panel Answer Date Recorded In a typical week, how many times do you talk on the phone with family, friends, or neighbors? Twice a week 08/22/2022 How often do you get together with friends or re latives? Twice a week 08/22/2022 How often do you attend sabianist or jainism serv ices? Never 08/22/2022 Do you belong to any clubs o r organizations such as sabianist groups, unions, fraternal or athletic groups, or [...] on file Legal Sex Male 3:01 PM BILINGUAL PATIENT SUPPORT CASEWORKER Gender Identity Not on file Sexual Orientation Not on file Obstetrics History Last Filed Vital Signs Vital Sign Reading Time Taken Comments Blood Pressure 111/62 08/22/2022 10:22 AM BILINGUAL PATIENT SUPPORT CASEWORKER Pulse 62 08/22/2022 10:22 AM BILINGUAL PATIENT SUPPORT CASEWORKER Temperature 36.7 C (98 F) 08/22/2022 8:14 AM BILINGUAL PATIENT SUPPORT CASEWORKER Respiratory Rate 20 08/22/2022 8:14 AM BILINGUAL PATIENT SUPPORT CASEWORKER Oxygen Saturation 99% 08/22/2022 8:14 AM BILINGUAL PATIENT SUPPORT CASEWORKER Inhaled Oxygen Concentration - - Weight 70.2 kg (154 lb 12.8 oz) 023 12:50 AM BILINGUAL PATIENT SUPPORT CASEWORKER Height 180.3 cm (5' 11) 08/22/2022 12: 50 AM BILINGUAL PATIENT SUPPORT CASEWORKER Body Mass Index 21.59 08/22/2022 12:50 AM BILINGUAL PATIENT SUPPORT CASEWORKER Plan of Treatment Health Maintenance Due Date Last Done Comments Depression Screening 1944 DTaP/Tdap/Td Vaccine (1 - Tdap) 1955 Hepatitis B Screening 1962 Well Visit 65+ 2009 Pneumococcal vaccine 65+ (2 of 2 - PCV20 or PCV21) 07/201007/08/2009 Zoster Vaccine (2 of 2) 10/09/2022 08/14/2022 Fall Risk Assessment 08/22/2023 08/22/2022 Influenza Vaccine (#1) 2025 08/22/2022 Insurance MEDICARE MEDICARE MEDICARE MEDICARE Advance Directives For more information, please contact: [phone] * Full Code (Latest Code Status on File) Date Activated Date Inactivated Comments 08/21/2022 11:42 PM 08/22/2022 7:04 PM * Full Code Date Activated Date Inactivated Comments 06/06/2021 2:34 PM 06/14/2021 4:31 PM Care Teams Revenue Cycle Analyst Relationship Specialty Start Date End Date Sid Ling DO PCP - General Family Medicine 10/27/20 Matias Polk DO [address] [facility] [address] [place] [address] Referring Physician Internal Medicine 06/06/21
--- OUTSIDE RECORDS SUMMARY | 2025-02-16 07:39 | XMS_ITS | Encounter Summary ---
Author Name [facility] [facility] [place] [facility] [place] Address [address] [place] [address] Care Team Providers Care Promotions Producer Name Role Phone AMY OTTO Primary Care [...] PART A Jun 07, 2009 PART A [id number] MOMO BOLTON JR PATIENT MEDICARE (WNR) MEDICARE (M) PART B Jun 07, 2009 PART B [id number] MOMO BOLTON JR PATIENT Selected Encounter This section includes the information on record at [place] for the Encounter. Date/Time Encounter Type Encounter Description Reason Provider Source Jun 19, 2024 07:30 AM OFFICE O/P EST LOW 20 MIN PODIATRY ICD-10-CM B35.1 Tinea unguium CHALO GRIFFIN Jessie Encounter Template Text not used by [place] Assessments - Encounter Diagnoses This section includes the primary and secondary diagnoses documented for the Encounter. Date/Time Primary/Secondary Diagnosis Diagnosis Name Provider Source Jun 19, 2024 07:53 AM PRIMARY [facility] Jun 19, 2024 07:53 AM SECONDARY Congenital pes cavus, left foot [facility] Jun 19, 2024 07:53 AM SECONDARY Congenital pes cavus, right foot [facility] Jun 19, 2024 07:53 AM SECONDARY Other hammer toe(s) (acquired), left foot [facility] Jun 19, 2024 07:53 AM SECONDARY Other hammer toe(s) (acquired), right foot [facility] Jun 19, 2024 07:53 AM SECONDARY Type 2 diabetes mellitus with diabetic neuropathy, unsp [facility] Plan of Treatment: Future Appointments (+ 6 months) and Future Tests (+/- 45 days) The Plan of Treatment section includes future care activities for the patient from all [place] [facility]. This section includes future appointments and future orders which are active, pending or scheduled. Future Appointments This section includes appointments that were scheduled to occur 6 months from the date of the Encounter, up to a maximum of 20 appointments. The data comes from all [place] treatment facilities. Appointment Date/Time Appointment Type Appointme nt Facility Name Sep 29, 2024 12:00 PM [facility] Social History: Smoking Status (Most current) and Tobacco Use (All prior to encounter date) This section includes the most current, and the historical, smoking and tobacco- related health factors from the [place] facility where the Encounter took place. Current Smoking Status This section includes the most current smoking, or tobacco-related health factor, from the [place] facility where the Encounter took place. Date/Time Current Smoking Status Kory sams Mar 12, 2023 03:15 PM [place]-TOBAC[place] NEVER USED [facility] Tobacco Use History This section includes a history of the smoking, or tobacco-related health factors, that were collected on or before the date of the Encounter. The data comes from the [place] facility where the Encounter took place. Date/Time Smoking Status/Tobacco Use Comment F yasmin Feb 13, 2022 02:15 PM [place]-TOBACCO NEVER USED [facility] Mar 07, 2007 08:00 AM LIFETIME NON-USER OF TOBACCO [facility] Mar 15, 2006 01:30 PM LIFETIME NON-TOBACCO USER [facility] May 28, 2005 11:30 AM LIFETIME NON-TOBACCO USER [facility] Sep 13, 2003 02:00 PM LIFETIME NON-TOBACCO USER [facility] Encounter Notes: All associated encounter notes This section contains the clinical notes associated to the Encounter. Date/Time Encounter Note(s) Provider Source Jun 19, 2024 07:41 AM PODIATRY NOTE: LOCAL TITLE: PODIATRY NOTE STANDARD TITLE: PODIATRY NOTE DATE OF NOTE: JUN 19, 2024@07:41 ENTRY DATE: JUN 19, 2024@07:42 AUTHOR: FILIPE GRIFFIN EXP COSIGNER: URGENCY: STATUS: COMPLETED S: PT PRESENTS TO CLINIC TODAY WITH CHIEF COMPLAINT OF ELONGATED NAILS. PT DENIES ANY SYSTEMIC SIGNS OF INFECTION RECENT TRAUMA. PT IS DIABETIC AND IS FOLLOWED BY HIS PCP FOR HIS DM. PT IS COOPERATIVE AND PLEASANT UPON EXAM. HE IS TAKING ASA DAILY. HE COMPLAINS OF OCCASSIONAL NEUROPATHY PAIN. HE DENIES ANY NEW CHANGES TO HIS MEDICAL HX SINCE HIS LAST FOOT EXAM. HE LIKES HIS NEW SHOES AND INSERTS. SYMPTOMS WORSENDED BY: NO DEBRIDEMENT SYMTOMS IMPROVED [...] AND RECONCILLED ALL PODIATRIC GENERATED MEDICATIONS. PER [place] DIRECTIVE 1122 PT IS CONSIDERED TO BE MODERATE TO HIGH RISK. /dusty/ FILIPE GRIFFIN Staff Physician, Podiatry Signed: 06/19/2024 07:53 FILIPE GRIFFIN [facility]
--- OUTSIDE RECORDS SUMMARY | 2025-02-16 07:39 | XMS_ITS | Encounter Summary ---
Author Name [facility] [place] [facility] [place] Address [address] [place] [address] Care Team Providers Care Manager Location Name Role Phone AMY OTTO Primary Care [...] PART A Jun 07, 2009 PART A [id number] MOMO BOLTON JR PATIENT MEDICARE (WNR) MEDICARE (M) PART B Jun 07, 2009 PART B [id number] [phone] MOMO BOLTON JR PATIENT Selected Encounter This section includes the information on record at [place] for the Encounter. Date/Time Encounter Type Encounter Description Reason Provider Source Mar 03, 2024 08:00 AM OFFICE O/P EST LOW 20 MIN PODIATRY ICD-10-CM M20.41 Other hammer toe(s) (acquired), right foot FILIPE GRIFFIN Encounter Template Text not used by [place] Assessments - Encounter Diagnoses This section includes the primary and secondary diagnoses documented for the Encounter. Date/Time Primary/Secondary Diagnosis Diagnosis Name Provider Source Mar 03, 2024 08:30 AM PRIMARY Other hammer toe(s) (acquired), right foot [facility] Mar 03, 2024 08:30 AM SECONDARY Congenital pes cavus, left foot [facility] Mar 03, 2024 08:30 AM SECONDARY Congenital pes cavus, right foot [facility] Mar 03, 2024 08:30 AM SECONDARY Other hammer toe(s) (acquired), left foot [facility] Mar 03, 2024 08:30 AM SECONDARY Tinea unguium [facility] Mar 03, 2024 08:30 AM SECONDARY Type 2 diabetes mellitus with diabetic neuropathy, unsp [facility] Plan of Treatment: Future Appointments (+ 6 months) and Future Tests (+/- 45 days) The Plan of Treatment section includes future care activities for the patient from all [place] [facility]. This section includes future appointments and future orders which are active, pending or scheduled. Future Appointments This section includes appointments that were scheduled to occur 6 months from the date of the Encounter, up to a maximum of 20 appointments. The data comes from all [place] treatment facilities. Appointment Date/Time Appointment Type Appointme nt Facility Name Jun 19, 2024 07:30 AM AMBULATORY - SURGERY [facility] Ozzy [facility] Social History: Smoking Status (Most current) and Tobacco Use (All prior to encounter date) This section includes the most current, and the historical, smoking and tobacco- related health factors from the [place] facility where the Encounter took place. Current Smoking Status This section includes the most current smoking, or tobacco-related health factor, from the [place] facility where the Encounter took place. Date/Time Current Smoking Status Kory sams Mar 12, 2023 03:15 PM [place]-TOBACCO NEVER USED [facility] Tobacco Use History This section includes a history of the smoking, or tobacco-related health factors, that were collected on or before the date of the Encounter. The data comes from the [place] facility where the Encounter took place. Date/Time Smoking Status/Tobacco Use Comment F acility Feb 13, 2022 02:15 PM [place]-TOBACCO NEVER USED [facility] Mar 07, 2007 08:00 AM LIFETIME NON-USER OF TOBACCO [facility] Mar 15, 2006 01:30 PM LIFETIME NON-TOBACCO USER [facility] May 28, 2005 11:30 AM LIFETIME NON-TOBACCO USER [facility] Sep 13, 2003 02:00 PM LIFETIME NON-TOBACCO USER [facility] Encounter Notes: All associated encounter notes This section contains the clinical notes associated to the Encounter. Date/Time Encounter Note(s) Provider Source Mar 03, 2024 08:06 AM PODIATRY NOTE: LOCAL TITLE: PODIATRY NOTE STANDARD TITLE: PODIATRY NOTE DATE OF NOTE: MAR 03, 2024@08:06 ENTRY DATE: MAR 03, 2024@08:06:48 AUTHOR: FILIPE GRIFFIN EXP COSIGNER: URGENCY: STATUS: [...] PAIN SCALE: 0/10. HGA1C: CONTROLLED PER PATIENT. ALLERGIES:SIMVASTATIN O: PT IS ALERT AND ORIENTED X 3 AND IN NAD. HE IS AMBULATING WITHOUT ASSISTANCE. HE IS WEARING HIS [place] SHOES AND INSERTS. VASC: PALPABLE PULSES HOWEVER [...] CUSTOM MADE INSERTS AND EXTRA DEPTH SHOES. PT SENT FOR NEW RX SHOES AND CUSTOM MADE INSERTS WITH PRECAUTIONS. 3 PES CAVUS B/L/ PT TO WEAR HIS CUSTOM MADE INSERTS AND RX SHOES WITH PRECAUTIONS. PT SENT FOR NEW RX SHOES AND CUSTOM MADE INSERTS WITH PRECAUTIONS. 4 HAMMER TOES B/L/ PT TO WEAR HIS EXTRA DEPTH SHOES WITH ACCOMMODATIONS. PT SENT FOR NEW RX SHOES AND CUSTOM MADE INSERTS WITH PRECAUTIONS. PT TO RTC FOR F/U 3 MONTHS. DISCUSSED TREATMENT OPTIONS WITH PATIENT AND PATIENT ADVISED TO GO TO THE ER IF ANY INCREASE IN PAIN REDNESS OR ERYTHEMA IS NOTED. PT STATES UNDERSTANDING. MEDICATION/RECONCILLIATI ON: REVIEWED AND RECONCILLED ALL PODIATRIC GENERATED MEDICATIONS. PER [place] DIRECTIVE 1122 PT IS CONSIDERED TO BE MODERATE TO HIGH RISK. PAVE FOOT EXAM A foot risk level was completed. The following risk level was identified for this patient: ========= +POD RISK SCORE+ *--LEVEL 2 - (MODERATE RISK)* DECREASED sensation No severe obstructive peripheral arterial disease (Foot deformity and/or minor foot infection may be present or absent) No ulceration, nor history of ulceration, osteomyelitis, or amputation No Charcot joint disease with foot deformity No chronic kidney disease, or less than CKD 4 LEVEL 2 FOOT EDUCATION: 1. Advised patient that therapeutic footwear and orthosis are required to accommodate foot deformities, to compensate for soft tissue atrophy, and to evenly distribute plantar foot pressures. 2. Advised patient not to walk barefoot. Instructed the patient to pay close attention to the style and fit of shoes. 3. Explained the importance of daily foot checks. Explained that loss of sensation leads to callouses. Callouses break down, which result in ulcers that may lead to gangrene and amputation. 4. Stressed the importance of daily foot hygiene. Warm (not hot) bathing of the feet, complete drying and thorough inspection for changes in the condition of the skin constitute daily foot care. Demonstrated how to do a thorough foot check. 5. Emphasized the use of clean, non-restrictive socks/stockings and well fitting shoes. 6. Stressed the importance of immediate follow-up of any foot injuries or ulcers. Explained that he/she should be non-weight bearing whenever there are lesions on the foot, to prevent cellular damage. Level of Understanding: Poor Patient/Family Response to Foot Care Teaching Patient walks barefoot: Daily Patient/caregiver able to clean feet at least once daily: Yes Patient/caregiver has difficulty examining feet: No /dusty/ FILIPE GRIFFIN Staff Physician, Podiatry Signed: 03/03/2024 08:30 FILIPE GRIFFIN [facility]
[2025-02-16 08:16] LABS: Anion Gap 8 mmol/L (4-12); Blood Urea Nitrogen 42 mg/dL (9-20); Calcium 9.7 mg/dL (8.4-10.2); Carbon Dioxide 27 mmol/L (22-30); Chloride 100 mmol/L (98-107); Estimated Glomerular Filt Rate > 60; Glucose 272 mg/dL (65-110); Potassium 5.5 mmol/L (3.4-5.0); Sodium 135 mmol/L (137-145)
== END 2025-02-16 07:36 | disposition home or self-care (01) ==
LOC: ANHLAB 07:36
PROVIDERS: PCP Internal Medicine Cardiovascular Disease; Visit Provider Internal Medicine Cardiovascular Disease
DX: E87.5 Hyperkalemia (principal)
CPT/HCPCS: 36415; 80048